=== PATIENT | female | born 1960 | race Caucasian/White ===

== ENCOUNTER → 2017-01-08 | Outpatient (CLI) | payer OTHER, BC ==
[2017-01-08 12:50] LABS: ALBUMIN 3.6 GM/DL (3.2-5.2); ALKALINE PHOSPHATASE 87 U/L (45-117); ALT/SGPT 26 U/L (12-78); ANION GAP 6 MEQ/L (8-16); AST/SGOT 13 U/L (15-37); BILIRUBIN,TOTAL 0.5 MG/DL (0.2-1.0); BLOOD UREA NITROGEN 21 MG/DL (7-18); CALCIUM LEVEL 8.9 MG/DL (8.5-10.1); CARBON DIOXIDE LEVEL 30 MEQ/L (21-32); CHLORIDE LEVEL 104 MEQ/L (98-107); CHOLESTEROL LEVEL 203 MG/DL (<200); CREATININE FOR GFR 0.79 MG/DL (0.55-1.02); GLOMERULAR FILTRATION RATE > 60.0 (>51); GLUCOSE, FASTING 94 MG/DL (70-105); POTASSIUM SERUM 4.1 MEQ/L (3.5-5.1); SODIUM LEVEL 140 MEQ/L (136-145); TOTAL PROTEIN 6.6 GM/DL (6.4-8.2); TRIGLYCERIDES LEVEL 124 MG/DL (<150)
== END ==
LOC: M ADAMS 08:35
PROVIDERS: ATTEND Nurse Practitioner Family
DX: E55.9 Vitamin D deficiency, unspecified (principal); R10.9 Unspecified abdominal pain; E78.4 Other hyperlipidemia

== ENCOUNTER → 2017-03-25 | Outpatient (REF) | payer OTHER | LOC: M SFHCWAGY 16:07 | PROVIDERS: ATTEND Nurse Practitioner Women's Health | DX: Z12.4 Encounter for screening for malignant neoplasm of cervix (principal) ==

== ENCOUNTER → 2017-03-25 | Outpatient (CLI) | payer OTHER ==
--- NOTE | 2017-03-26 08:14 | REPMRS ---
Patient History The patient states she had a clinical breast exam in 03/2017. Patient is postmenopausal. Family history of colorectal cancer in maternal grandmother at age 50 or over. Took hormonal contraceptives for 2 years. Digital Woman Screen Mammo: March 25, 2017 - Exam #: [id number] Bilateral CC and MLO view(s) were taken. Technologist: Catherine Nesbitt, Technologist Prior study comparison: February 06, 2016, digital woman screen mammo performed at [facility]. January 11, 2014, bilateral bilat screen digital mammo, performed at [facility] ([place]). FINDINGS: There are scattered fibroglandular densities. There has been no change in the appearance of the mammogram from the prior studies. There is a mild amount of residual fibroglandular tissue which is fairly symmetric. There is no interval development of dominant mass, architectural distortion, or clustered microcalcification suggestive of malignancy. ASSESSMENT: BI-RADS/ACR category 1 mammogram. Negative. Recommendation Routine screening mammogram in 1 year (for women over age 40). This mammogram was interpreted with the aid of an FDA-approved computer-aided dectection system. Electronically Signed By: Chris Mccurdy MD 03/25/17 [id number]
--- NOTE | 2017-03-27 10:26 | DEXA ---
AP SPINE L1 - L4 1.067 -1.0 0.1 LT FEMUR TOTAL 1.064 0.4 1.3 RT FEMUR TOTAL 0.998 -0.1 0.8 TOTAL BODY TOTAL OTHER DUAL FEMUR FRAX* ASSESSMENT Risk factors: Not performed. 10 year probability of fracture Major osteoporotic fracture % Hip fracture % COMMENTS: Normal bone densitometry of the left hip. There is low bone density of the spine. There is low bone density of the right hip. FOLLOW-UP: Recommendation for the next bone density exam: 2 years. NICHOLAS
== END ==
LOC: M WHC 15:25
PROVIDERS: ATTEND Nurse Practitioner Women's Health
DX: Z12.31 Encounter for screening mammogram for malignant neoplasm of breast (principal); N95.1 Menopausal and female climacteric states

== ENCOUNTER → 2017-08-12 | Outpatient (REF) | payer OTHER ==
[2017-08-12 12:54] LABS: BASO % 0.6 % (0.0-1.0); EOS % 1.2 % (0.0-3.0); HEMATOCRIT 42.6 % (36.0-47.0); HEMOGLOBIN 13.9 g/dl (12.0-16.0); IMMATURE GRANULOCYTE % 0.3 % (0-0); LYMPH # 1.2 10^3/uL (1.5-4.5); LYMPH % 33.6 % (24.0-44.0); MEAN CORPUSCULAR HEMOGLOBIN 27.5 pg (27.0-33.0); MEAN CORPUSCULAR HGB CONC 32.6 g/dl (32.0-36.5); MEAN CORPUSCULAR VOLUME 84.2 fl (80.0-96.0); MONO # 0.3 10^3/uL (0.0-0.8); MONO % 9.6 % (0.0-5.0); NEUTROPHILS # 1.9 10^3/uL (1.8-7.7); NEUTROPHILS % 54.7 % (36.0-66.0); PLATELET COUNT, AUTOMATED 233 10^3/uL (150-450); RED BLOOD COUNT 5.06 10^6/uL (4.00-5.40); RED CELL DISTRIBUTION WIDTH 13.1 % (11.5-14.5); WHITE BLOOD COUNT 3.4 10^3/uL (4.0-10.0)
[2017-08-12 13:21] LABS: ALBUMIN 3.9 GM/DL (3.2-5.2); ALBUMIN/GLOBULIN RATIO 1.18 (1.00-1.93); ALKALINE PHOSPHATASE 87 U/L (45-117); ALT/SGPT 31 U/L (12-78); ANION GAP 6 MEQ/L (8-16); AST/SGOT 20 U/L (7-37); BILIRUBIN,TOTAL 0.4 MG/DL (0.2-1.0); BLOOD UREA NITROGEN 14 MG/DL (7-18); CALCIUM LEVEL 8.8 MG/DL (8.5-10.1); CARBON DIOXIDE LEVEL 29 MEQ/L (21-32); CHLORIDE LEVEL 106 MEQ/L (98-107); CHOLESTEROL LEVEL 198 MG/DL (<200); CHOLESTEROL RISK RATIO 3.473 (<5); CREATININE FOR GFR 0.66 MG/DL (0.55-1.02); GLOMERULAR FILTRATION RATE > 60.0 (>51); GLUCOSE, FASTING 95 MG/DL (70-105); HDL CHOLESTEROL 57 MG/DL (>40); LDL CHOLESTEROL 112.8 MG/DL (<100); NON-HDL-C 141 MG/DL; POTASSIUM SERUM 3.9 MEQ/L (3.5-5.1); SODIUM LEVEL 141 MEQ/L (136-145); TOTAL PROTEIN 7.2 GM/DL (6.4-8.2); TRIGLYCERIDES LEVEL 141 MG/DL (<150)
== END ==
LOC: M LABDRWAD 12:29
DX: K21.9 Gastro-esophageal reflux disease without esophagitis (principal); E55.9 Vitamin D deficiency, unspecified; E78.4 Other hyperlipidemia

== ENCOUNTER → 2018-03-26 | Outpatient (CLI) | payer OTHER | LOC: M WHC 07:50 | DX: Z12.31 Encounter for screening mammogram for malignant neoplasm of breast (principal) | CPT/HCPCS: 77067 ==

== ENCOUNTER → 2018-12-25 | Outpatient (CLI) | payer OTHER ==
--- NOTE | 2018-12-26 06:45 | REP ---
Left axillary soft tissue ultrasound: History: Unspecified lump in the axillary tail of the left breast. Comparison is made with mammography from March 26, 2018. Findings: Scanning in the area of the palpable lump in the left axilla demonstrates a hypoechoic mass just anterior to the axillary artery. This measures 3.5 x 2.9 x 3.1 cm. It is heterogeneously solid. It is somewhat hypoechoic. Doppler demonstrates increased vascularity within the lesion. Impression: 3.5 cm solid hypoechoic mass in the axilla. This is most likely adenopathy. Breast malignancy versus lymphoma versus other cause of adenopathy are differential possibilities. Repeat left breast mammography is recommended. Consider histologic sampling. BIRADS category 4 suspicious left axillary ultrasound. Electronically Signed by Ranjit Posey MD 12/26/2018 11:47 A
== END ==
LOC: M RAD 09:47
PROVIDERS: ATTEND Physician Assistant
DX: N63.32 Unspecified lump in axillary tail of the left breast (principal)

== ENCOUNTER → 2019-01-05 | Outpatient (CLI) | payer OTHER ==
--- NOTE | 2019-01-05 15:11 | REP ---
DIAGNOSTIC MAMMOGRAM LEFT BREAST WITH 3D TOMOSYNTHESIS AND LEFT BREAST ULTRASOUND: MLO and CC views of the left breast are performed with 3D tomosynthesis. Additional spot compression views are performed in the left axillary region. Patient reports a palpable lump deep in the left axilla for the past 2 weeks. Correlation made with prior ultrasound of the left axillary region 12/25/2018. There is no family history of breast cancer. [facility] lifetime risk of breast cancer is 5.3%. MLO and CC views of the left breast are performed with 3D tomosynthesis and compared to prior exams, most recent of which is 03/26/2018. Mild scattered fibroglandular tissue in the left breast remain stable with no evidence of a mass in the left breast and no suspicious clusters of microcalcifications. Apparently, the mass deep in the left axilla could not be included on the mammographic images. Real-time sonographic evaluation of the left axillary region again demonstrates an irregular hypoechoic solid mass with internal blood flow with Doppler evaluation. It measures 4.1 x 3.8 x 2.2 cm. IMPRESSION: BIRADS 4: BI-RADS/ACR category 4 mammogram. Suspicious Abnormality - biopsy should be considered. ACR 4 suspicious. The mammographic images could not include the mass in the deep left axilla, but by ultrasound it is again seen as a suspicious-appearing solid mass probably representing left axillary adenopathy. It measures 4.1 x 3.8 x 2.2 cm and is similar to the prior study. Recommend ultrasound-guided biopsy. This mammogram was interpreted with the aid of an FDA-approved computer-aided detection system. A. Negative x-ray reports should not delay biopsy if a dominant or clinically suspicious mass is present. B. Four to eight percent of cancers are not identified by x-ray. C. Adenosis and dense breasts may obscure an underlying neoplasm. The patient states she/he had a clinical breast exam in December 2018. The patient letter being requested is M4. Electronically Signed by Chris Mccurdy MD 01/05/2019 04:20 P
== END ==
LOC: M RAD 12:19
PROVIDERS: ATTEND Nurse Practitioner Women's Health
DX: N63.32 Unspecified lump in axillary tail of the left breast (principal)

== ENCOUNTER → 2019-01-18 | Outpatient (CLI) | payer OTHER ==
[~2019-01-18] MED LIST: ISOVUE-370 76% 100ML VIAL (Q9967) As Ordered ONE
--- NOTE | 2019-01-18 09:25 | REP ---
CT CHEST WITH IV CONTRAST: TECHNIQUE: Axial contrast enhanced images from the thoracic inlet to the upper abdomen using 100 mL Isovue 370 intravenous contrast material with multiplanar reformations. COMPARISON: 11/28/2008. Large oval heterogeneously enhancing mass is seen in the left axilla measuring 5.3 x 3.1 cm. No other adenopathy is seen in the axillary regions, nor in the mediastinum or hilar regions. There is mild atherosclerotic calcification of the thoracic aorta without aneurysm. Heart is slightly enlarged. There is no pleural or pericardial effusion. Mild scattered fibrotic changes are seen throughout both lungs. There is a 5 mm nodular density in the right middle lobe which is oval in shape and slightly irregular. Followup CT should be performed in 1 year. There are degenerative changes of the spine. Visualized upper abdominal structures are unremarkable. There is a small hiatal hernia. IMPRESSION: Large heterogeneously enhancing left axillary mass 5.3 x 3.1 cm. Ill-defined low density areas internally may indicate some degree of internal necrosis. Differentiation diagnosis would include neoplastic and inflammatory etiologies. No other evidence of adenopathy in the chest. There is a 5 mm nodular density in the right middle lobe which was not seen on the prior study. Followup CT recommended in 1 year. Electronically Signed by Chris Mccurdy MD 01/19/2019 10:35 A
== END ==
LOC: M RAD 07:38
PROVIDERS: ATTEND Surgery
DX: R59.0 Localized enlarged lymph nodes (principal)
CPT/HCPCS: 71260; Q9967

== ENCOUNTER → 2019-01-25 | Outpatient (CLI) | payer OTHER ==
[~2019-01-25] MED LIST changes: +GLUCOSAMINE; +HYALUR; +HYDR-3713 PO; -ISOVUE-370 76% 100ML VIAL (Q9967) As Ordered ONE; +LIDOCAINE 1% MDV 20ML VIAL As Ordered ONE; +OMEGCAP9 PO; +OMEP40CA2 PO; +SIMV40TA2 PO; +VENTAER INH; +VITAD1000T PO; +[UNRECOGNIZED DRUG - OTHER] INH
--- NOTE | 2019-01-25 17:03 | REP ---
ULTRASOUND-GUIDED LEFT AXILLARY MASS BIOPSY The procedure was performed under the direct supervision of Dr. Mccurdy. The patient has a history of a large heterogeneously enhancing left axillary mass measuring 5.3 x 3.1 cm seen on a previous CT scan dated 01/18/2019. The risks and benefits of the procedure were explained to the patient and informed consent was obtained. The left axillary mass was localized using ultrasound guidance. The skin was prepped and draped in a sterile fashion. 1% lidocaine was used as a local anesthetic. Using ultrasound guidance a 17/18 gauge coaxial needle biopsy system was inserted and advanced into the mass. Eight core biopsy samples were obtained and sent to lab. The patient tolerated the procedure well and there were no immediate complications. After the appropriate amount of monitored convalescence the patient was discharged from the department. Reviewed by FAYE Meek 01/25/2019 04:44 P Electronically Signed by Chris Mccurdy MD 01/25/2019 04:54 P
== END ==
LOC: M RADPRO 12:22
PROVIDERS: ATTEND Surgery
DX: C77.3 Secondary and unspecified malignant neoplasm of axilla and upper limb lymph nodes (principal); Z79.899 Other long term (current) drug therapy

== ENCOUNTER → 2019-02-02 | Outpatient (CLI) | payer OTHER ==
[~2019-02-02] MED LIST changes: +AMBI5TAB PO; +GASTROGRAFIN SOLUTION 30ML (Q9963) As Ordered ONE; +ISOVUE-370 76% 100ML VIAL (Q9967) As Ordered ONE; -LIDOCAINE 1% MDV 20ML VIAL As Ordered ONE
--- NOTE | 2019-02-02 12:46 | REP ---
Clinical: Neoplasm. Technique: Axial contrast enhanced images from the lung bases to the pubic symphysis using oral (per protocol) and 100 ml Isovue 370 intravenous contrast material with precontrast and delayed images of the abdomen as well as coronal and sagittal re-formations. Comparison: None. Findings: Lung bases are clear. Visualized heart and pericardium within normal limits. The liver demonstrates mild fatty infiltration without focal hepatic lesion identified. Spleen, pancreas, gallbladder, bilateral adrenal glands and kidneys are normal. A small hiatal hernia is identified at the gastroesophageal junction. There is circumferential mural thickening involving the mid/distal sigmoid colon of approximately 5.5 cm in length. Scattered colonic and sigmoid diverticulosis noted. Normal cecum and terminal ileum identified in the right lower quadrant. Pelvis demonstrates relatively normal bladder and age-appropriate uterus/adnexa. No obvious intraperitoneal or retroperitoneal adenopathy. No free air. No ascites. Atherosclerotic changes to the aorta and vasculature noted without aneurysm or dissection. Musculoskeletal structures demonstrate age-related changes without focal osseous abnormality. Impression: 1. Circumferential mural thickening involving the mid to distal sigmoid colon of approximately 5.5 cm in length. No obvious adjacent fluid or adenopathy. 2. Small hiatal hernia at the gastroesophageal junction. 3. Colonic and sigmoid diverticulosis without acute diverticulitis. Electronically Signed by Zak Dykes MD 02/02/2019 12:38 P
== END ==
LOC: M RAD 10:03
PROVIDERS: ATTEND Surgery
DX: K44.9 Diaphragmatic hernia without obstruction or gangrene (principal); K57.32 Diverticulitis of large intestine without perforation or abscess without bleeding
CPT/HCPCS: 74178; Q9963; Q9967

== ENCOUNTER 2019-02-04 11:17 | Day surgery (SDC) | payer OTHER ==
[~2019-02-04] VITALS: Ht 152.4 cm; Wt 75.7 kg
[~2019-02-04 11:17] MED LIST changes: -AMBI5TAB PO; -GASTROGRAFIN SOLUTION 30ML (Q9963) As Ordered ONE; -HYDR-3713 PO; -ISOVUE-370 76% 100ML VIAL (Q9967) As Ordered ONE; +LIDOCAINE 2% INJ 100 MG/5 ML SDV (FOR ANES.) As Ordered ONE; +PROPOFOL 200 MG/20 ML VIAL As Ordered ONE
[2019-02-04] MEDS: NS 1,000 ML IV ONE (11:30)
--- NOTE | 2019-02-04 13:06 | ROOR ---
Patient Name: Rose Chavez Procedure Date: 02/04/2019 12:52 PM Date of : 1960 Age: 58 Room: [facility] Gender: Female Note Status: Finalized Procedure: Upper GI endoscopy Indications: Personal history of malignant neoplasm Providers: Eliseo Solorio Jr, MD Referring MD: Felipe Rosado NP Requesting Provider: Medicines: Propofol per Anesthesia Complications: No immediate complications. Procedure: Pre-Anesthesia Assessment: - Prior to the procedure, a History and Physical was performed, and patient medications and allergies were reviewed. The patient is competent. The risks and benefits of the procedure and the sedation options and risks were discussed with the patient. All questions were answered and informed consent was obtained. Patient identification and proposed procedure were verified by the physician and the nurse in the pre-procedure area and in the procedure room. Mental Status Examination: alert and oriented. Airway Examination: normal oropharyngeal airway and neck mobility. Respiratory Examination: clear to auscultation. CV Examination: normal. ASA Grade Assessment: II - A patient with mild systemic disease. After reviewing the risks and benefits, the patient was deemed in satisfactory condition to undergo the procedure. The anesthesia plan was to use moderate sedation / analgesia (conscious sedation). Immediately prior to administration of medications, the patient was re-assessed for adequacy to receive sedatives. The heart rate, respiratory rate, oxygen saturations, blood pressure, adequacy of pulmonary ventilation, and response to care were monitored throughout the procedure. The physical status of the patient was re-assessed after the procedure. The Endoscope was introduced through the mouth, and advanced to the second part of duodenum. The upper GI endoscopy was accomplished without difficulty. The patient tolerated the procedure well. Findings: The upper third of the esophagus, middle third of the esophagus and lower third of the esophagus were normal. The cardia, gastric fundus, gastric body, gastric antrum, prepyloric region of the stomach and pylorus were normal. A small hiatal hernia was present. The ampulla, duodenal bulb, first portion of the duodenum and second portion of the duodenum were normal. Impression: - Normal upper third of esophagus, middle third of esophagus and lower third of esophagus. - Normal cardia, gastric fundus, gastric body, antrum, prepyloric region of the stomach and pylorus. - Small hiatal hernia. - Normal ampulla, duodenal bulb, first portion of the duodenum and second portion of the duodenum. - No specimens collected. Recommendation: - Discharge patient to home (ambulatory). - Return to my office as previously scheduled. Eliseo Solorio MD Eliseo Solorio Jr, MD 02/04/2019 1:05:37 PM Electronically signed by Eliseo Solorio Jr, MD Number of Addenda: 0 Note Initiated On: 02/04/2019 12:52 PM Estimated Blood Loss: Estimated blood loss: none.
--- NOTE | 2019-02-04 13:26 | ROOR ---
Patient Name: Rose Chavez Procedure Date: 02/04/2019 12:53 PM Date of : 1960 Age: 58 Room: [facility] Gender: Female Note Status: Finalized Procedure: Colonoscopy Indications: Abnormal CT of the GI tract Providers: Eliseo Solorio Jr, MD Referring MD: Felipe Rosado NP Requesting Provider: Medicines: Propofol per Anesthesia Complications: No immediate complications. Procedure: Pre-Anesthesia Assessment: - Prior to the procedure, a History and Physical was performed, and patient medications and allergies were reviewed. The patient is competent. The risks and benefits of the procedure and the sedation options and risks were discussed with the patient. All questions were answered and informed consent was obtained. Patient identification and proposed procedure were verified by the physician and the nurse in the pre-procedure area and in the procedure room. Mental Status Examination: alert and oriented. Airway Examination: normal oropharyngeal airway and neck mobility. Respiratory Examination: clear to auscultation. CV Examination: normal. ASA Grade Assessment: II - A patient with mild systemic disease. After reviewing the risks and benefits, the patient was deemed in satisfactory condition to undergo the procedure. The anesthesia plan was to use moderate sedation / analgesia (conscious sedation). Immediately prior to administration of medications, the patient was re-assessed for adequacy to receive sedatives. The heart rate, respiratory rate, oxygen saturations, blood pressure, adequacy of pulmonary ventilation, and response to care were monitored throughout the procedure. The physical status of the patient was re-assessed after the procedure. The Colonoscope was introduced through the anus and advanced to the cecum, identified by appendiceal orifice and ileocecal valve. The colonoscopy was performed without difficulty. The patient tolerated the procedure well. The quality of the bowel preparation was adequate. Findings: The rectum, recto-sigmoid colon, descending colon, transverse colon, ascending colon, cecum, appendiceal orifice and ileocecal valve appeared normal. A small polyp was found in the sigmoid colon. The polyp was removed with a jumbo cold forceps. Resection and retrieval were complete. Many small and large-mouthed diverticula were found in the sigmoid colon. An area of moderately congested mucosa was found in the distal sigmoid colon. Impression: - The rectum, recto-sigmoid colon, descending colon, transverse colon, ascending colon, cecum, appendiceal orifice and ileocecal valve are normal. - One small polyp in the sigmoid colon, removed with a jumbo cold forceps. Resected and retrieved. - Diverticulosis in the sigmoid colon. - Congested mucosa in the distal sigmoid colon. Recommendation: - Discharge patient to home (ambulatory). - Repeat colonoscopy at appointment to be scheduled for surveillance based on pathology results. - Return to my office as previously scheduled. Eliseo Solorio MD Eliseo Solorio Jr, MD 02/04/2019 1:25:49 PM Electronically signed by Eliseo Solorio Jr, MD Number of Addenda: 0 Note Initiated On: 02/04/2019 12:53 PM Estimated Blood Loss: Estimated blood loss: none.
[2019-02-04 13:57] VITALS: BP 133/79
[2019-02-09] MEDS ORDERED: HYDR-3713 PO (13:59)
[2019-02-10] MEDS ORDERED: AMBI5TAB PO (13:47)
== END 2019-02-04 14:01 | disposition home or self-care (01) ==
LOC: M OPP 11:17
PROVIDERS: ATTEND Surgery
DX: K63.5 Polyp of colon (principal); K57.30 Diverticulosis of large intestine without perforation or abscess without bleeding; K63.89 Other specified diseases of intestine; K44.9 Diaphragmatic hernia without obstruction or gangrene; Z85.9 Personal history of malignant neoplasm, unspecified

== ENCOUNTER → 2019-02-09 | Outpatient (CLI) | payer OTHER ==
[~2019-02-09] MED LIST changes: +AMBI5TAB PO; +HYDR-3713 PO; +LIDO2.5C15 TOP; -LIDOCAINE 2% INJ 100 MG/5 ML SDV (FOR ANES.) As Ordered ONE; +ONDA4TAB6 PO; -PROPOFOL 200 MG/20 ML VIAL As Ordered ONE
--- NOTE | 2019-02-09 11:19 | RADONC ---
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 A definitive primary has not been located for this patient as of the date of the consultation. STAGE: Minimal stage [id number]. ICD-10 CODE: C-80.9 ECOG PERFORMANCE STATUS: 0 HISTORY OF PRESENT ILLNESS: The patient is a 58-year-old female who noted a "lump" in her left axilla associated with some "electric shock" feelings in her left arm. She also noted that this neuropathy like sensation was an intermittent sensation and it was not present at all times. She describes the sensation as a numb sensation associated with some pain which is exacerbated upon motion. The area of numbness is located in the medial aspect of her left forearm and she does have difficulty extending her arm out and laterally as well as medial extension. She has a constant aching feeling in the armpit at the present time. She has no history of breast cancer and she obtained a mammogram which was considered negative for dominant masses on 01/05/2019. Again it was repeated on 01/27/2019 and no specific masses were noted; however, an area of hypoechoic mass was demonstrated in the left axilla which measured 4.1 x 3.8 x 2.2 cm. This was classified as a BI-RADS category 4 suspicious mass. The left breast was examined with 3-D tomosynthesis and was eventually biopsied, showing metastatic mucinous adenocarcinoma. The biopsy took place I believe on 01/27/2019 and histopathologically the tumor was GATA3 negative and ER negative to try to determine the site of origin. But definitely a metastatic mucinous adenocarcinoma was seen. Because of the negative CHARU 3 status and negative ER status, it was felt that a source from another primary other than breast may indeed be a consideration. However, thus far the patient has had a colonoscopy where a polyp was removed which showed only hyperplastic changes. According to the patient Dr. Solorio did feel that there was some submucosal swelling, but the history that I have suggests that the patient has inflammatory bowel disease. Nonetheless, a CT scan of the chest, abdomen and pelvis was done and no definitive diagnoses were considered as there were no distinct abnormalities other than a 5 mm nodule in one of the lungs, which was considered most likely incidental. The patient will be scheduled for a PET scan to further help clarify the status of potential metastatic disease and perhaps even further clarify the source of the primary. She is to see Dr. Ramirez, medical oncologist, later this afternoon. She comes today to discuss her newly diagnosed mucinous adenocarcinoma involving the left axilla. PAST MEDICAL HEALTH: She has a history of hypercholesterolemia, COPD. PAST SURGICAL HEALTH: She has a history of hysterectomy, partial. section 1978 and 1981. Hernia repair. She had some anesthetic complications with nausea. FAMILY HISTORY OF CANCER: Her father had lung cancer, hypertension and heart disease. The lung cancer was surgically resected and he is ELIESER at the current time. Her mother is secondary to heart disease, had a history of hypertension and diabetes. as well as Hodgkin's lymphoma. SOCIAL HISTORY: She is a former smoker of one to two packs per day for 37 years but quit in 2009. ALCOHOL HISTORY: Rarely. She denies recreational drug use. ALLERGIES: No known drug allergies. PAIN: She rates her pain in the axilla at a level 5/10. She takes some [id number] pain medications which help to some degree. REVIEW OF SYSTEMS. RESPIRATORY: Denies coughing, dyspnea, hemoptysis, hiccups, pleuritic pain or chest pain. PSYCHIATRIC: Denies delusions, hallucination, mood changes with regards to depression or euphoria. NEUROLOGIC: Denies disorientation, dizziness, problems with gait, headache, insomnia, memory loss, neuropathy, with the exception of neuropathic pain in her left upper extremity as described in the H P. She has no paralysis and has had no seizure activity. She does have sensory issues with regards to her left upper extremity and a neuropathic like pain secondary to the mass located in the left axilla. MUSCULOSKELETAL: She has a history of arthritis and bone pain as well as joint pain, some muscle weakness and decrease in the range of motion especially with regards to the left upper extremity. INTEGUMENTARY: Denies alopecia, blisters, bruising, dry skin, facial burning, nail issues, photosensitivity, pruritus, rash or urticaria. HEMATOLOGIC: Hematopoietic. She has lymphadenopathy with regards to her left axilla with a large 4-5 cm what appears to be a fixed lymph node involving the left axilla, which is tender to the touch and associated with neuropathic like pain and numbness. GENITOURINARY: Denies dysuria, frequency genital masses, hematuria, incontinence, nocturia, renal stones, sexual dysfunction, urgency, urine color or change, vaginal discharge or bleeding, vaginal spotting. GASTROINTESTINAL: Denies changes in bowel habits, constipation, diarrhea, heartburn, dyspepsia, hematemesis, hematochezia, hemorrhoids, melena, nausea, pain, cramping, satiety, vomiting. ENDOCRINE: Denies a history of diabetes, hot flashes, menstrual irregularities or thyroid disease. CONSTITUTIONAL: Denies changes in appetite. She does note a minimal amount of fatigue. Denies fever, lethargy, malaise, night sweats, rigors or significant weight changes. CARDIOVASCULAR: Denies arrhythmias, chest pain, dyspnea, edema, orthopnea or palpitation. BREASTS: Bilaterally symmetric and she denies feeling any breast masses, although she does feel the large lymph node in the left axilla. Denies nipple discharge, nipple inversion or significant pain in the breast itself. EXAMINATION FINDINGS: VITALS: O2 saturation 96%, diastolic 83, systolic 153, respirations 20, pulse 83, temperature 98.2, weight 171.2 pounds, height 61 inches. HEENT: Normocephalic. EOMs intact. PERRLA. Fundi benign. LYMPHATICS: No palpable peripheral lymphadenopathy in the cervical or supraclavicular area. The left axilla reveals a fairly large fixed 4.5 to 5 cm lymph node which is moderately tender. The patient has some neuropathic like pain and areas of numbness involving the medial forearm. No other adenopathy is appreciated in the inguinal lymph node chains. LUNGS: Are clear to auscultation and percussion. BREASTS: Bilaterally symmetric with no dominant masses. Left-sided lymph node is palpable and somewhat tender as mentioned above. HEART: Regular without murmurs. ABDOMEN: Without evidence of hepatomegaly, masses, deep abdominal tenderness. EXTREMITIES: Without cyanosis, clubbing or edema. She does have some limitation of motion involving her left upper extremity with regards to pain and actual muscle weakness. One must assume this is secondary to the fairly large lymph node in the left axilla of which the pain may be neuropathic in origin. NEUROLOGIC EXAMINATION: Neuropathic like pain in the left axilla radiating down the left arm with some muscle weakness. Otherwise physiologic and nonfocal. PSYCHIATRIC: The patient has some depression secondary to her newly diagnosed axillary adenocarcinoma. CURRENT MEDICATIONS: - omeprazole DR one 40 mg tablet - simvastatin 40 mg daily - vitamin D3 15 mcg daily - glucosamine 150 mg daily - omega 3 acid one daily IMPRESSION: Adenocarcinoma, involving the left axilla (mucinous). PLAN OF RADIOTHERAPY: The patient's workup continues to be ongoing. We will take the liberty of ordering a PET scan to determine the patient's stage and hopefully that will also help us with determining the site of tumor primary, whether it be from a distant side versus the breast. Some of a pathologic staining would suggest that this is not of a breast primary, yet the PET scan will help determine both the stage and perhaps the site of origin. The PET scan will be ordered at this time. In addition, she has an appointment to see Dr. Ramirez of medical oncology who will be evaluating the patient and ordering any studies which she might feel would be of benefit in determining the patient's diagnosis, stage and ultimately treatment. As the patient is symptomatic, I would assume that we would consider radiating her known site of symptomatic disease which is at the current time, the axilla. If it is determined that this is of breast origin one might consider radiating empirically the breast and the axilla. Definitive recommendations will follow the evaluation of her PET scan and/or other diagnostic studies to be ordered. Thank you for referring this very aixa lady to us and allowing us the opportunity of participation in her overall management. cc: Eliseo Solorio Jr, MD Sara McGee, MD MTDD
== END ==
LOC: M ONCR 07:49
PROVIDERS: ATTEND Radiology Radiation Oncology
DX: C50.919 Malignant neoplasm of unspecified site of unspecified female breast (principal)

== ENCOUNTER 2019-02-23 12:01 | Outpatient (CLI) | payer OTHER ==
[~2019-02-23 12:01] MED LIST changes: +BUPIVACAINE HCL 0.5% 10 ML VIAL As Ordered ONE; +LIDOCAINE 2% MDV 20 ML VIAL As Ordered ONE; +ceFAZolin 1GM INJ (J0690 PER 500MG) As Ordered ONE
[2019-02-23 13:15] VITALS: BP 148/87
--- NOTE | 2019-03-23 10:22 | ROOPDOC ---
[facility] Report Of Operation Report of Operation DATE OF PROCEDURE: 02/23/2019 PREOPERATIVE DIAGNOSIS: LEFT AXILLARY MASS. POSTOPERATIVE DIAGNOSIS: LEFT AXILLARY MASS. PROCEDURE: Ultrasound guided right internal jugular vein cannulation. Fluoroscopic guided right internal jugular vein tunneled central venous catheter with subcutaneous port placement with placement of a power injectable [employer] [place] Power Port with 24 centimeter length catheter. SURGEON: Dr. Jose Allred M.D. GARMENT MENDER: DEBBIE HONEYCUTT ANESTHESIA: Local with 20 mL of 2% lidocaine mixed with 0.5% Marcaine. SEDATION TIME: None. ANTIBIOTICS: Ancef 2 g FLUOROSCOPY TIME: 0.3 minutes. CONTRAST: None. ESTIMATED BLOOD LOSS: 10 mL. IV FLUID: 100 mL. COMPLICATIONS: None. DRAINS: None. SPECIMENS: None. IMPLANTS: Right internal jugular vein tunneled central venous catheter with subcutaneous port placement using a [employer] [place] Power Port which is power injectable. INDICATION: Patient is a 58-year-old female with mass in the left axilla which is thought to be metastatic lymphadenopathy possibly from colon cancer. Patient requires access for chemotherapy and drawing of blood for evaluation. Patient will undergo a right tunneled central venous catheter placement with subcutaneous port. Procedure was described and explained to the patient in detail including drawing of pictures showing the procedure and anatomy associated with insertion of the tunneled central venous catheter was subcutaneous port. Risks, benefits, and alternative treatment options were discussed with the patient. Alternative treatment options included, but were not limited to, no intervention. Benefits included, but were not limited to, access for chemotherapy infusion centrally, avoiding recurrent venous cannulations , IV placements and sclerosis of peripheral veins. Risks included, but were not limited to, infection, bleeding, pneumothorax, hemothorax, possible need for further open surgical intervention, renal failure requiring hemodialysis, failure of the tunneled central venous catheter with subcutaneous port to function requiring evaluation, revision and/or replacement, adverse and/or allergic reaction to the sedation medications and/or local anesthetics, anesthetic and sedation complication, possible need for transfusion of blood products, allergic reaction and/or complication from the prepping and draping materials, bruising, scarring, cerebrovascular accident, myocardial infarction, pulmonary embolus, deep venous thrombosis, poor satisfaction, poor results, poor outcome, loss of limb and loss of life. Risks of not performing the port insertion included but were not limited to inability to gain access for chemotherapy, inability to gain access for blood draws and laboratory evaluation, sclerosis and thrombophlebitis of peripheral veins and pain associated with continued peripheral cannulations. Patient's questions were answered. Patient voices understanding of these risks, benefits, and alternative treatment options. Patient voices acceptance of the risks associated with placement of a central venous tunneled catheter with subcutaneous port placement and consents to proceed with tunneled central venous catheter with subcutaneous port placement. No guarantees or promises were made to the patient regarding the results or outcome of the procedure. DESCRIPTION OF PROCEDURE: Patient was taken to the angiography suite, placed supine on the angiography room table, and prepped and draped in a standard surgical fashion. A time-out was conducted by myself and the team members involved in the procedure, confirming the correct procedure, patient, and laterality. Ultrasound was then used to evaluate the right internal jugular vein, which was noted to be easily compressible, widely patent, and free of thrombus. Ultrasound was then used to guide cannulation of the right internal jugular vein with a micropuncture needle with real-time concurrent visualization of the entry of the needle into the right internal jugular vein with a hardcopy image preserved. The skin overlying the right internal jugular vein was anesthetized with 2% lidocaine mixed with 0.5% Marcaine prior to cannulation. Once the right internal jugular vein was cannulated, the micropuncture wire was advanced through the micropuncture needle, which was up-sized to a micropuncture sheath. A J wire was advanced through the micropuncture sheath. The right internal jugular vein was then dilated under fluoroscopic guidance, and a #8-Indian introducer sheath was positioned through the right internal jugular vein into the superior vena cava. The wire was removed, and the #8-Indian single lumen catheter, which had been tunneled from a puncture wound in the right chest and brought out at the puncture wound at the right internal jugular vein entry site, was advanced through the introducer sheath under fluoroscopic guidance. The introducer sheath was then removed, and the catheter was positioned with the tip in the superior vena cava/right atrial junction under fluoroscopic guidance. The catheter was cut to a length of 24 cm and attached to the port. A pocket was created in the right chest after anesthetizing the overlying tissue with 2% lidocaine mixed with 0.5% Marcaine. The port was placed in the pocket and cannulated using an access needle. The port was noted to aspirate and flush easily and then was flushed with heparinized saline. The incision in the chest was closed using # 4-0 Monocryl suture in inverted interrupted fashion. The puncture wound in the right neck was closed using a #4-0 Monocryl in inverted interrupted fashion. Steri-Strips and dressings were applied. Patient tolerated the procedure well. All instrument, sponge, and needle counts were correct at the end of the case. There were no complications. Dr. Allred was present for and directed the entire case. Patient was transferred to the recovery area and subsequently discharged in stable condition. The tunneled central venous catheter with subcutaneous port is stable for use for access. RADIOLOGIC SUPERVISION AND INTERPRETATION: The ultrasound showed the right internal jugular vein to be easily compressible, widely patent, and free of thrombus. Ultrasound was used to guide cannulation of the right internal jugular vein with real-time concurrent visualization of the entry of the needle into the right internal jugular vein. The right internal jugular vein was then dilated under fluoroscopic guidance with a #8-Indian introducer sheath placed under fluoroscopic guidance. The 8 Indian single lumen catheter was advanced through the introducer sheath positioned with the tip in the superior vena/right atrial junction using fluo roscopic guidance with final fluoroscopic image showing the catheter and port to be in good position and good alignment with the tip in the superior vena cava/right atrial junction with no pneumo- or hemothorax noted. The tunneled central venous catheter with subcutaneous port is stable for use. Omi Allred MD Mar 23, 2019 10:22
== END 2019-02-23 13:20 | disposition home or self-care (01) ==
LOC: M IRPRO 12:01
PROVIDERS: ATTEND Surgery Vascular Surgery
DX: R22.2 Localized swelling, mass and lump, trunk (principal); J44.9 Chronic obstructive pulmonary disease, unspecified; E78.5 Hyperlipidemia, unspecified; K21.9 Gastro-esophageal reflux disease without esophagitis
CPT/HCPCS: 36563; 76937; 77001; C1788; C1894; J0690

== ENCOUNTER 2019-03-25 12:16 | Emergency (ER) | payer OTHER ==
[~2019-03-25] VITALS: Ht 154.9 cm; Wt 73.6 kg
[~2019-03-25 12:16] MED LIST changes: -BUPIVACAINE HCL 0.5% 10 ML VIAL As Ordered ONE; +CHOL100029 PO; -LIDOCAINE 2% MDV 20 ML VIAL As Ordered ONE; -OMEP40CA2 PO; +OMEP40CA97 PO; -SIMV40TA2 PO; +SIMV40TA20 PO; -VITAD1000T PO; -ceFAZolin 1GM INJ (J0690 PER 500MG) As Ordered ONE
[2019-03-25] MEDS ORDERED: diphenhydrAMINE INJ 50MG/ML VIAL (J1200) IV ONE (13:45)
[2019-03-25] MEDS ORDERED: FAMOTIDINE INJ 20MG/2ML VIAL (S0028) IVP ONE (13:45)
[2019-03-25] MEDS ORDERED: dexameTHASONE 20 MG/5 ML VIAL (J1100) IV ONE (13:45)
[2019-03-25] MEDS ORDERED: EPIP0.3I2 IM (15:56)
[2019-03-25] MEDS ORDERED: PRED20TA PO (15:56)
[2019-03-25 16:00] VITALS: BP 132/64
[2019-04-07] MEDS ORDERED: POTA20TA6 PO (10:46)
[2019-04-07] MEDS ORDERED: FILG48VL SC (16:42)
[2019-04-29] MEDS ORDERED: ZARX0.05 SQ (09:46)
[2019-04-30] MEDS ORDERED: ZARX0.05 SQ (09:22)
[2019-07-12] MEDS ORDERED: ZARX0.05 SQ (08:56)
[2019-08-24] MEDS ORDERED: D32000CA PO (08:31)
[2019-08-24] MEDS ORDERED: DULO1CAP4 PO (09:29)
== END 2019-03-25 16:43 | disposition home or self-care (01) ==
LOC: M ED 12:16
DX: T63.461A Toxic effect of venom of wasps, accidental (unintentional), initial encounter (principal); Y92.9 Unspecified place or not applicable; Y93.9 Activity, unspecified; E78.5 Hyperlipidemia, unspecified; K21.9 Gastro-esophageal reflux disease without esophagitis; L40.9 Psoriasis, unspecified; J45.909 Unspecified asthma, uncomplicated; J44.9 Chronic obstructive pulmonary disease, unspecified; C18.9 Malignant neoplasm of colon, unspecified; Z92.21 Personal history of antineoplastic chemotherapy; Z87.891 Personal history of nicotine dependence; Z79.899 Other long term (current) drug therapy
CPT/HCPCS: 94760; 96374; 96375; 99284; J1100; J1200

== ENCOUNTER → 2019-05-25 | Outpatient (CLI) | payer OTHER ==
[~2019-05-25] MED LIST changes: +EPIP0.3I2 IM; +FILG48VL SC; +POTA20TA6 PO; +PRED20TA PO; +SIMV40TA2 PO; -SIMV40TA20 PO; +ZARX0.05 SQ
--- NOTE | 2019-05-26 09:38 | REP ---
PET/CT: History: Restaging colon cancer. Initial diagnosis February 27, 2019. 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 5 mm right middle lobe lung nodule. The patient on chemotherapy. Comparison PET/CT study January 11, 2019. Comparison CT study abdomen and pelvis February 02, 2019. Comparison CT chest January 18, 2019. TECHNIQUE: 47 minutes following the intravenous injection of a 8.47 mCi dose of F-18 FDG, three-dimensional PET scintigraphy is acquired from the skull base to the proximal thighs. Triplanar noncontrast CT scanning is acquired through the same anatomic range for attenuation correction, and image registration with scan parameters optimized to minimize radiation exposure to the patient. PET scintigraphy and CT datasets were fused and displayed on a workstation with multiplanar and projection display capability. PET/CT Findings: The tiny sub-centimeter right middle lobe pulmonary nodule remains non-hypermetabolic and unchanged in size. No abnormal intrathoracic hypermetabolic uptake is seen. The left axillary adenopathy appears larger today, 6.8 x 4.7 cm in greatest transverse dimension, previously 5.3 x 3.1 cm on January 18, 2019. It remains quite hypermetabolic. Maximum standard uptake value within the left axillary adenopathy is 18.21 today. Previously 22.75. The skeletal muscle metastasis in the left trapezius muscle is again seen essentially unchanged with maximum standard uptake value 16.29 today, previously 20.81. The skeletal metastatic focus in the abductor musculature of the left proximal thigh at the level of the ischium on the left is again seen. Maximum standard uptake value in this is 20.08 today, previously 19.75. There is a focus of increased uptake in the sigmoid colon with maximum standard uptake value 10.46. This is increased compared to the prior study when maximum standard uptake value in this region was 6.42. Impression: Persistent hypermetabolic uptake is noted in previously identified left axillary and skeletal muscle metastatic sites. The left axillary mass appears larger. There is increased hypermetabolic activity in the sigmoid colon compared to the prior PET/CT study. No new site is appreciated. Stable non-hypermetabolic right middle lobe nodule. Electronically Signed by Ranjit Posey MD 05/26/2019 01:43 P
== END ==
LOC: M PLARAD 11:20
PROVIDERS: ATTEND Internal Medicine Hematology & Oncology
DX: C18.9 Malignant neoplasm of colon, unspecified (principal)

== ENCOUNTER → 2019-07-30 | Outpatient (CLI) | payer OTHER ==
[~2019-07-30] MED LIST changes: +GASTROGRAFIN SOLUTION 30ML (Q9963) As Ordered ONE; +ISOVUE-370 76% 100ML VIAL (Q9967) As Ordered ONE; -SIMV40TA2 PO; +SIMV40TA20 PO
--- NOTE | 2019-07-30 14:30 | REP ---
CT CHEST WITH IV CONTRAST: TECHNIQUE: Axial contrast enhanced images from the thoracic inlet to the upper abdomen using 100 mL Isovue 370 intravenous contrast material with multiplanar reformations. COMPARISON: 01/18/2019. The previously noted soft tissue mass in the left axilla has increased in size. It measures approximately 5.5 x 7.0 cm. There is mild induration of surrounding fat. There is a soft tissue mass in the posterior chest wall on the left at the level of the clavicle measuring 3.0 x 2.2 cm. There is no evidence of mediastinal, or hilar adenopathy. The heart is normal in size. There is no pleural or pericardial effusion. There is a Mediport catheter seen. Tip is in the superior vena cava. There are mild scattered fibrotic changes in the lungs without pulmonary nodule. There are mild degenerative changes of the spine. IMPRESSION: Increased size of left axillary soft tissue mass. There is a posterior left chest wall soft tissue mass at the level of the left clavicle measuring 3.0 x 2.2 cm. No mediastinal adenopathy. No pulmonary nodule identified. Electronically Signed by Chris Mccurdy MD 07/30/2019 04:55 P
--- NOTE | 2019-07-30 14:37 | REP ---
CT ABDOMEN AND PELVIS WITH IV AND ORAL CONTRAST: TECHNIQUE: Axial contrast enhanced images from the lung bases to the pubic symphysis using 100 mL Isovue 370 intravenous contrast material with multiplanar reformations. There is again a small hiatal hernia noted. Liver, spleen, adrenals, pancreas, and kidneys are again unremarkable and unchanged compared to the prior CT of 02/02/2019. There is atherosclerotic calcification of the abdominal aorta without aneurysm. No adenopathy is seen in the abdomen or pelvis. There is no free air or free fluid. Multiple diverticula are seen of the left colon and sigmoid colon. There is again diffuse segmental thickening of the sigmoid colon similar to the prior study. Urinary bladder is mildly distended and grossly unremarkable. Uterus is grossly unremarkable. In the very proximal aspect of the left thigh soft tissues medially there is a heterogeneously enhancing mass measuring 4.5 cm in diameter. This has increased since prior study. IMPRESSION: Segmental thickening of the sigmoid colon appears similar to the prior study. Multiple diverticula are seen in this region. No new adenopathy in the abdomen or pelvis. Soft tissue mass left thigh, medially, has increased since prior study 4.5 cm in maximum diameter. Electronically Signed by Chris Mccurdy MD 07/30/2019 04:55 P
== END ==
LOC: M RAD 11:23
PROVIDERS: ATTEND Internal Medicine Hematology
DX: M79.89 Other specified soft tissue disorders (principal); I70.0 Atherosclerosis of aorta; C18.9 Malignant neoplasm of colon, unspecified
CPT/HCPCS: 71260; 74177; Q9963; Q9967

== ENCOUNTER → 2019-09-03 | Outpatient (CLI) | payer OTHER ==
[~2019-09-03] MED LIST changes: +CLAR10CA3 PO; +CLAR10TA7 PO; +D32000CA PO; +DULO1CAP4 PO; -GASTROGRAFIN SOLUTION 30ML (Q9963) As Ordered ONE; -ISOVUE-370 76% 100ML VIAL (Q9967) As Ordered ONE
--- NOTE | 2019-09-04 13:12 | RADONC ---
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 ECOG PERFORMANCE STATUS: 0 CONSULTATION NOTE: Ms. Chavez is a very pleasant 59-year-old white female who was originally seen in our department on 02/09/2019 for consideration of palliative radiation therapy to a left axillary mass. Since her visit, however, she has been under the care of medical oncology and has been receiving systemic therapy consisting of FOLFIRI, plus Avastin. Apparently, her axillary mass initially shrank but has been growing again and causing her numbness in her left arm and pain. She, therefore, is now presenting to us for consideration of palliative radiation therapy once again. REVIEW OF SYSTEMS: The patient's review of systems is positive for some left arm numbness and axillary discomfort, but is otherwise noncontributory. Denies nausea, vomiting, fevers, chills, night sweats, diplopia, headaches, anxiety or depression, anorexia, weight loss, visual disturbances, chest pain, urinary or bowel difficulties, bone pain, or neurological problems. PHYSICAL EXAMINATION: The patient is a well-developed, well-nourished white female in no acute distress. HEENT exam is normocephalic, atraumatic. Extraocular movements are intact. There is no palpable cervical, supraclavicular, infraclavicular lymphadenopathy present. In the patient's left axillary region there is a large fixed mass. The right axillary area is free of nodularity. Her lungs are clear to auscultation and percussion. Heart has regular rate and rhythm. ASSESSMENT: Clearly the patient is a candidate for palliative radiation therapy and I have so informed her. I have discussed with the patient in detail the potential benefits as well as possible acute and chronic sequelae of external beam radiation therapy. Specifically we spoke about neurological damage from radiation to the brachial plexus as well as exacerbation of lymphedema. The patient reports that she is already having pain and some lymphedema, and therefore, wishes to undergo treatment fully aware of the risks. I have scheduled the patient for the next available simulation slot and radiation treatments will begin subsequently.
== END ==
LOC: M ONCR 09:54
PROVIDERS: ATTEND Radiology Radiation Oncology
DX: C18.9 Malignant neoplasm of colon, unspecified (principal); I89.0 Lymphedema, not elsewhere classified; Z92.3 Personal history of irradiation

== ENCOUNTER 2019-09-09 10:10 | Outpatient (RCR) | payer OTHER ==
--- NOTE | 2019-09-10 07:14 | RADONC ---
RADIATION ONCOLOGY SIMULATION NOTE: DATE: 09/09/2019 CHART NUMBER: [id number] Ms. Chavez was taken to the CT scan for CT simulation of her left axillary field. CT was accomplished without difficulty or discomfort. Radiation treatment planning is underway and radiation treatments will begin subsequently. An immobilization device was created and be used throughout the course of treatment. It was created without difficulty or discomfort. I was physically present throughout the course of CT simulation.
== END 2019-09-10 ==
LOC: M ONCR 10:10
PROVIDERS: ATTEND Radiology Radiation Oncology
DX: C77.3 Secondary and unspecified malignant neoplasm of axilla and upper limb lymph nodes (principal)

== ENCOUNTER 2019-10-06 11:33 | Outpatient (RCR) | payer OTHER ==
--- NOTE | 2019-09-20 14:40 | RADONC ---
RADIATION ONCOLOGY DATE: 09/20/2019 CHART NUMBER: [id number] Ms Chavez presented with left axillary mass causing severe pain and numbness and swelling of the left arm. Biopsy of the mass in the left axilla was positive for metastatic CA primary from the colon. She started chemo last February and changed to a different regimen because of the progression of the disease. She is radiation therapy. So far she has received 800 cGy. She said she is still having pain but seems to be slightly eased. SYSTEMIC REVIEW: She has complaints of pain. Pain scale of 8 to 9 on the left axilla. Some weakness of the left arm. She denies nausea, vomiting, headache, bowel problems. PHYSICAL EXAMINATION: There is slight swelling of the left arm. There is a hard mass in the left axilla about 5 cm. No other abnormal examination. So far she is tolerating treatments very well with some relief of pain and treatment will continue as planned. MTDD
--- NOTE | 2019-09-28 11:46 | RADONC ---
RADIATION ONCOLOGY DATE OF SERVICE: 09/27/2019 CHART NUMBER: [id number]. Ms. Chavez is carrying diagnosis of metastatic left axillary mass from the primary colon. She has been on chemotherapy since last February and changed to different regimen because of the progression of the disease. So far, she has received dose of 1600 cGy to the left axilla. The pain in the left axilla is significantly improved. SYSTEMIC REVIEW: She said the pain in the left axilla is now 2-3 from the 8-9 last week. She denies nausea, vomiting, headache, or weight changes. On physical examination, she weighs 162 pounds. Blood pressure is 146/82. Temperature 98.3. Pulse 85. Respiration 16. O2 saturation is 98% in room air. There is the mass in the left axilla about 5-6 cm in size and moderate in consistency. There are no significant skin changes noted. ASSESSMENT AND PLAN: The patient with metastatic left axillary mass from the colon primary is getting chemotherapy and the radiation therapy. So far, she has received dose of 1600 cGy. The pain is significantly improved. Radiation therapy will continue as planned. MTDD
--- NOTE | 2019-10-05 08:58 | RADONC ---
RADIATION ONCOLOGY PROGRESS NOTE: DATE: 10/04/2019 CHART NUMBER: [id number] Ms. Chavez is presently at a dose of 2600 cGy to her left axilla and is tolerating treatments quite well at this point with no complaints related to her radiation therapy. The patient had a marked improvement in her discomfort and feels like the mass is shrinking. REVIEW OF SYSTEMS: The patient's review of systems is basically noncontributory. She denies nausea, vomiting, fevers, chills, night sweats, diplopia, headaches, anxiety or depression, anorexia, weight loss, visual disturbances, chest pain, urinary or bowel difficulties, bone pain, or neurological problems. PHYSICAL EXAMINATION: The patient's skin is in good condition with no evidence of moist or dry desquamation. I do believe the axillary mass has decreased in size. The remainder of her physical exam remains unchanged. Ms. Chavez is tolerating treatments quite well and radiation will continue as scheduled.
[2019-10-11] MEDS ORDERED: SILV40CR EXT (13:40)
== END 2019-10-09 ==
LOC: M ONCR 11:33
PROVIDERS: ATTEND Radiology Radiation Oncology
DX: C18.9 Malignant neoplasm of colon, unspecified (principal)

== ENCOUNTER → 2019-11-09 | Outpatient (RCR) | payer OTHER ==
--- NOTE | 2019-10-12 14:16 | RADONC ---
RADIATION ONCOLOGY PROGRESS NOTE DATE: 10/11/2019 CHART NUMBER: [id number] PROGRESS NOTE: Ms. Chavez is presently at a dose of 3200 cGy to her left axilla and is tolerating treatments quite well at this point with no significant difficulties related to her radiation therapy other than some skin discomfort. REVIEW OF SYSTEMS: The patient's review of systems is positive for skin discomfort, but is otherwise noncontributory. Denies nausea, vomiting, fevers, chills, night sweats, diplopia, headaches, anxiety or depression, anorexia, weight loss, visual disturbances, chest pain, urinary or bowel difficulties, bone pain, or neurological problems. PHYSICAL EXAMINATION: The patient's skin is in good condition with some tanning and erythema present. There is no significant moist desquamation at this point. The remainder of her physical exam remains unchanged. Ms. Chavez is tolerating treatments quite well and radiation will continue as scheduled. I have sent in a prescription for Silvadene cream to be applied topically b.i.d.
--- NOTE | 2019-10-19 14:11 | RADONC ---
RADIATION ONCOLOGY PROGRESS NOTE DATE: 10/18/2019 CHART NUMBER: [id number] PROGRESS NOTE: Ms. Chavez is thus far at a dose of 4000 cGy to her left axilla and was last treated on 10/15/2019. The patient came in today for reevaluation of her skin. I had placed her on rest after last week and gave her Silvadene. REVIEW OF SYSTEMS: The patient is having some tenderness and pain of the skin and reports some yellowish material on her bandage. Her review of systems is otherwise noncontributory. Denies nausea, vomiting, fevers, chills, night sweats, diplopia, headaches, anxiety or depression, anorexia, weight loss, visual disturbances, chest pain, urinary or bowel difficulties, bone pain, or neurological problems. PHYSICAL EXAMINATION: On physical exam, the patient's skin shows dry desquamation and two small areas of moist desquamation. I do not appreciate anything that looks infected. Indeed the skin actually looks like it is improving somewhat with the use of Silvadene. The remainder of physical exam remains unchanged. I have recommended that the patient stay on rest this week and continue using Silvadene as well as triple antibiotic ointment to the area. We will see her on Friday for reinitiation of treatment and reevaluation. In the meantime, the patient has been instructed to contact us if we could be of any assistance.
--- NOTE | 2019-10-26 11:11 | RADONC ---
RADIATION ONCOLOGY PROGRESS NOTE DATE: 10/25/2019 CHART NUMBER: [id number] Mrs. Chavez is presently being treated with radiotherapy for her metastatic mucinous adenocarcinoma, likely of colorectal primary. She has a mass in the left axilla and has been placed on rest from her radiotherapy for approximately 1 week. She returns to our clinic today for reevaluation. She denies any nausea, vomiting, coughing, sputum production or hemoptysis but she does have focal patchy moist desquamation in the axilla which appears to be healing but not quite yet healed. There are focal islands of re-epithelialization and she no longer has a significant amount of discomfort but has difficulty with washing the area. EXAMINATION FINDINGS: The area still his weeping and with focal areas of desquamation and re-epithelialization. She is not yet ready to restart her radiotherapy because she is not healed sufficiently at the present time. She has tingling involving her left arm and we are treating her with palliative intent. She had been receiving FOLFIRI with Avastin chemotherapy. IMPRESSION: The patient will be off of her radiotherapy for approximately one additional week while she is allowed for her skin to heal. PLAN: We will see her again in one week's time to evaluate her to restart her radiotherapy.
--- NOTE | 2019-11-01 14:43 | RADONC ---
RADIATION ONCOLOGY PROGRESS NOTE DATE: 11/01/2019 CHART NUMBER: [id number] Ms. Chavez is thus far at a dose of 4000 cGy to her left axilla and was last treated on 10/15/2019. She had been on rest for a brisk skin reaction with moist desquamation. The patient came in today reporting that she is feeling less pain and discomfort. REVIEW OF SYSTEMS: Is positive for some continued discomfort but is otherwise noncontributory. She denies nausea, vomiting, fevers, chills, night sweats, diplopia, headaches, anxiety or depression, anorexia, weight loss, visual disturbances, chest pain, urinary or bowel difficulties, bone pain, or neurological problems. PHYSICAL EXAMINATION: The patient's skin shows that is healing but there still are large areas of moist desquamation throughout the axillary region. The remainder of physical exam remains unchanged. Ms. Chavez will remain on rest until Friday this week. We will then deliver three additional treatments after which she will have the 2 days off for the weekend and then two more next week. This should complete her course of treatment. On carpenter supervisor a note the patient's tumor has decreased in size significantly.
--- NOTE | 2019-11-08 13:28 | RADONC ---
RADIATION ONCOLOGY PROGRESS NOTE DATE: 11/08/2019 CHART #: [id number] Ms. Chavez is presently at a dose of 4800 cGy to her left axilla and is tolerating her treatments with some difficulty. She had a brisk skin reaction secondary to radiation with moist desquamation. The patient came in today reporting continued discomfort. PHYSICAL EXAMINATION: There continues to be moist desquamation in the treated area. It appears not any worse than last week. ASSESSMENT: Since the patient only has one more fraction of radiation left, we will complete treatment tomorrow. She will continue with her Silvadene treatments.
[~2019-11-09] MED LIST changes: +PROC5TA PO; +SILV40CR EXT; +ZOFR4TAB16 PO
--- NOTE | 2019-11-10 13:09 | RADONC ---
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 ECOG PERFORMANCE STATUS: 0 TREATMENT SUMMARY: Ms. Chavez is a very pleasant 59-year-old white female with the diagnosis of metastatic adenocarcinoma to her left axilla, who presented to us for consideration of palliative radiation therapy to a large mass causing her pain and difficulties with range of motion of her arm. We treated the patient to her left axilla for a total dose of 5000 cGy delivered in 25 fractions of 200 cGy each over 55 elapsed days from 09/15/2019 through 11/09/2019. The patient's left axilla was treated on a linear accelerator utilizing a 10 MV photon beam via 3-D conformal technique. Ms. Chavez tolerated her treatments with some skin reaction, but overall had an excellent response with a marked decrease in the size of her mass and improvement in her arm pain and range of motion. She is now able to have her arm straight down by her side and she reports that it appears to be improving on a daily basis. I have scheduled the patient to see me again in 1 month for further followup. She will also continue to be followed by her other physicians as well. cc: CHRISTI Prabhakar Jr, MD Jonathan Harrison, MD
== END ==
LOC: M ONCR 10-11 12:50
PROVIDERS: ATTEND Radiology Radiation Oncology
DX: C77.3 Secondary and unspecified malignant neoplasm of axilla and upper limb lymph nodes (principal)

== ENCOUNTER → 2019-11-29 | Outpatient (REF) | payer OTHER ==
[2019-11-29 10:06] LABS: HEMOGLOBIN A1c 5.4 %
== END ==
LOC: M LAB REF 09:04
PROVIDERS: ATTEND Physician Assistant Medical
DX: R73.01 Impaired fasting glucose (principal)

== ENCOUNTER → 2020-01-04 | Outpatient (CLI) | payer OTHER ==
--- NOTE | 2020-01-05 01:03 | REP ---
PET/CT: HISTORY: Restaging colon carcinoma. Metastatic. Maintenance chemotherapy. Recent external beam radiation therapy for metastatic lesion to the left axilla. COMPARISONS: Comparison PET/CT study 05/25/2019 and 02/10/2019. TECHNIQUE: 45 minutes following the intravenous injection of a 8.05 mCi dose of F-18 FDG, three-dimensional PET scintigraphy is acquired from the skull base to the proximal thighs. Triplanar noncontrast CT scanning is acquired through the same anatomic range for attenuation correction, and image registration with scan parameters optimized to minimize radiation exposure to the patient. PET scintigraphy and CT datasets were fused and displayed on a workstation with multiplanar and projection display capability. PET/CT FINDINGS: The left axillary racquel metastasis is decreased in size and demonstrates a peripheral pattern of hypermetabolic uptake, suggesting some central necrosis. Maximum SUV value remains somewhat high at 10.22. This focus measures 4.3 cm in greatest diameter. The soft tissue mass in the periarticular soft tissues of the left shoulder in the region of the supraspinatus muscle appears increased in size, 5.8 cm. It is quite hypermetabolic, maximum standard uptake value 25.37. There is a new focus of hypermetabolic uptake along the superior margin of the left glenoid. No obvious bony destruction. This may be arthritis related or a metastatic bony focus. Maximum standard uptake value is 5.51. The soft tissue metastasis in the adductor musculature of the proximal thigh on the left shows persistent hypermetabolic uptake, maximum standard uptake value 22.60. This measures 5.3 cm in greatest diameter. This appears to have enlarged. No other abnormal hypermetabolic uptake is seen. IMPRESSION: There is some improvement noted in the left axillary focus. A new area of increased uptake is seen in the left glenoid, which may be arthritis associated. No other evidence of hematogenous skeletal lesions. The intramuscular metastases in the region of the left supraspinatus muscle and the metastasis in the adductor musculature of the proximal thigh on the left have increased in size and are quite hypermetabolic. Electronically Signed by Ranjit Posey MD 01/05/2020 08:21 A
== END ==
LOC: M PLARAD 13:15
PROVIDERS: ATTEND Internal Medicine Medical Oncology
DX: C18.7 Malignant neoplasm of sigmoid colon (principal); C77.3 Secondary and unspecified malignant neoplasm of axilla and upper limb lymph nodes; C79.89 Secondary malignant neoplasm of other specified sites
CPT/HCPCS: 78815; A9552

== ENCOUNTER → 2020-01-18 | Outpatient (CLI) | payer OTHER ==
[~2020-01-18] MED LIST changes: +BACT800T5 PO; +CEPH500C PO; +D31000TA2 PO; +ELIQ5TAB PO; +FISH1000 PO; +GABA-282 PO; +K-TA10TA2 PO; +KEFL500C17 PO; +LONS1TAB2 PO; +LOVE0.4I2 SC; +METH5TA PO; +METH5TAB3 PO; +MORP10SO PO; +OXYC-517 PO; +PERC5TAB12 PO; -PROC5TA PO; +PROC5TAB57 PO; +STIV40TA PO; +VITA-157 PO; +[UNRECOGNIZED DRUG - OTHER]; +wheel chair
--- NOTE | 2020-01-21 17:28 | RADONC ---
RADIATION ONCOLOGY CONSULTATION NOTE DATE: 01/18/2020 This is a telemedicine visit. The patient was informed of the risks including security breech, technological failure, inability to perform a comprehensive physical exam which could delay or prevent an accurate diagnosis, and potential complications from treatment decisions rendered over a telemedicine platform. The patient understands and consented to the use of telehealth services phone only. 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 ECOG PERFORMANCE STATUS: 1 CONSULTATION NOTE: Ms. Chavez is a very pleasant 59-year-old white female with the diagnosis of metastatic mucinous adenocarcinoma who was originally seen in our department on 02/09/2019 for consideration of palliative radiation therapy to a left axillary mass. We treated the patient to her left axilla for a dose of 5000 cGy delivered in 25 fractions of 200 cGy each over 55 elapsed days from 09/15/2019 through 11/09/2019. The patient's left axilla was treated on the linear accelerator utilizing a 10 MV photon beam. The patient reports that her axillary mass decreased in size and responded nicely. Unfortunately, she continues to still have healing problems with the skin in her axillary area. She reports that some days are very good but other days have some oozing. This was a telephone consultation and I have not seen her. Since completion of treatment, the patient has been followed by medical oncology and a PET/CT scan was done on 01/04/2020. This revealed that the left axillary racquel metastasis had decreased in size and demonstrated peripheral pattern of hypermetabolic uptake suggesting central necrosis. The SUV value was 10.22. The focus measured 4.3 cm. Clearly this seemed to be a good response to radiation. In addition, there was a soft tissue mass in the left shoulder in the region of the supraspinous muscle which measured 5.8 cm. It had an SUV value of 25.37. Another mass was noted in the abductor musculature of the proximal thigh on the left consistent with hypermetabolic uptake with an SUV value of 22.6. This mass measured 5.3 cm. The patient reports that her left shoulder mass as well as her groin mass is causing her pain and discomfort and is she is being seen by me today for consideration of palliative radiation therapy to these areas as well. PAST MEDICAL HISTORY: The patient's past medical history is positive for COPD and hypercholesterolemia. PAST SURGICAL HISTORY: The patient had a in 1978 and 1981. She has had a partial hysterectomy. ALLERGIES: The patient has NO KNOWN DRUG ALLERGIES. FAMILY HISTORY: The patient's family history is positive for a father with lung cancer and a maternal aunt with Hodgkin's disease. She had a grandmother with some type of cancer as well. SOCIAL HISTORY: The patient had smoked two packs of cigarettes per day for 37 years. She quit 10 years ago. She drinks alcohol socially. REVIEW OF SYSTEMS: The patient's review of systems is positive for skin discomfort in the treated axillary region with some discharge. It is also positive for pain over her left shoulder and left groin region. PHYSICAL EXAMINATION: Physical exam was deferred at this time since this was a telephone consultation for COVID-19 precautions. We will examine her when she comes in for simulation. ASSESSMENT: I had a very lengthy discussion with Ms. Chavez, and we discussed the potential benefits as well as possible acute and chronic sequelae of external beam radiation therapy. We discussed the logistics of treatment planning, simulation and subsequent fractionated daily radiation treatments. I specifically discussed the issues which complicate this treatment. She has had difficulty with her axillary skin following radiation. I explained to her that the region of the groin we will be treating is actually more sensitive to radiation and may be painful and have some desquamation and oozing as well. In addition, she may have significant burning urine or bowel issues during the course of treatment to that area. We are planning a dose of approximately 3000 cGy in 10 fractions of 300 cGy each and will focus narrowly on that mass hoping to avoid too many difficulties. The patient reported that following the initial radiation to the axilla she did not wish to have her undergo radiation again secondary to the skin discomfort, but she now reports that in light of the increasing discomfort in the two untreated areas she is willing to use radiation, which appears to be the only modality that is effective. In addition, I spoke at great length with her about her shoulder treatment. We will be scheduling her for CT simulation and we will attempt to see whether or not we could treat this safely without any overlap of the previous field. The two areas are quite close and until we attempt to various planning techniques I am not sure yet whether or not we could safely treat this area. In light of this, I am scheduling the patient for the next available simulation slot for both treatment areas. Further recommendations will be made once treatment planning is completed. cc: CHRISTI Schneider Jr, MD MTDD
--- NOTE | 2020-02-02 14:30 | RADONC ---
RADIATION ONCOLOGY DATE OF SERVICE: 01/31/2020 Ms. Chavez is a 59-year-old woman who carries a diagnosis of metastatic colon CA. She had multiple course of chemo and radiation therapy. Currently she is receiving palliative radiation therapy to the left groin and also left shoulder. She said the pain in the left shoulder is somewhat improved with pain scale of 5. However, it can go up to 6-7. REVIEW OF SYSTEMS: She has no other complaints. She denies nausea, vomiting, fever, chills, night sweats, headache. PHYSICAL EXAMINATION: She is alert and oriented, No in apparent disttress There are no significant skin changes noted in the left shoulder and groin area. Overall she is tolerating treatment fairly well and the treatment will continue as planned. MTDD
== END ==
LOC: M ONCR 10:02
PROVIDERS: ATTEND Radiology Radiation Oncology
DX: C18.9 Malignant neoplasm of colon, unspecified (principal)

== ENCOUNTER → 2020-02-08 | Outpatient (RCR) | payer OTHER ==
--- NOTE | 2020-01-25 13:25 | RADONC ---
RADIATION ONCOLOGY SIMULATION NOTE DATE OF SERVICE: 01/20/2020 CHART NUMBER: [id number]. SIMULATION NOTE: Ms. Chavez was taken to the CT scan for CT simulation of her right upper back, as well as right groin field. CT was accomplished without difficulty or discomfort. Radiation treatment planning is underway, and radiation treatments will begin subsequently. An immobilization device was created, which reproduced the previously-treated axillary field. It was created without difficulty or discomfort. I was physically present throughout the course of CT simulation. Of note, there is an area measuring several centimeters of her axillary skin which is not yet healed. She is now 2 months post completion of external beam radiation therapy to that area. It is causing her some discomfort. She has been using Silvadene on this. For this wound, I am setting her up with a consultation at our wound care center to see if they could be of some assistance in accelerating healing this very pleasant woman for that site. I am concerned, and we will be quite diligent in planning the right shoulder mass field. Great care will be taken not overlap with the previous field. I made clear to the patient, however, that this may not be possible, and we may not be able to treat the left shoulder region safely. The groin region can be treated, but I made clear to her, as well, that that skin is quite sensitive, and she might have a significant amount of discomfort following radiation. We will, however, continue with treatment planning and see what we can come up with for that treatment. Once again, in summary, we are undertaking treatment planning for the groin area and the right shoulder. Great care will be needed to avoid any overlap with the previously-treated axillary field. In addition, the groin area may be quite sensitive following radiation, and I am sending her to the wound care clinic for an evaluation to see if they could be of any assistance in expediting healing in the previously-radiated field.
[~2020-02-08] MED LIST changes: -BACT800T5 PO; -CEPH500C PO; -D31000TA2 PO; -ELIQ5TAB PO; -GABA-282 PO; -K-TA10TA2 PO; -KEFL500C17 PO; -LONS1TAB2 PO; -LOVE0.4I2 SC; -METH5TA PO; -METH5TAB3 PO; -MORP10SO PO; -OXYC-517 PO; -PERC5TAB12 PO; +PROC5TA PO; -PROC5TAB57 PO; -wheel chair
--- NOTE | 2020-02-08 15:13 | RADONC ---
RADIATION ONCOLOGY DATE OF SERVICE: 02/08/2020 Ms. Chavez is receiving palliative radiation therapy to the right scapular area and left inguinal area. She has received a dose of 3000 cGy in 10 fractions to the left inguinal area using 6 MeV photon beams from January 26, 2020 to February 08, 2020 in 13 elapsed days. She also received radiation therapy left scapular area with dose of 3000 cGy in 10 fractions from January to February 08, 2020 in 13 elapsed days using 6 MeV photon beams. She tolerated treatment very well. Her pain in the left shoulder and the left inguinal area is much improved. However, she complains pain in the right shoulder pain score of 8-9 and has limitation of movement. She is currently taking Tylenol for pain. She was advised continuous followup care with the physicians involved, and she was also asked to return here in 1 month for checkup. NICHOLAS
--- NOTE | 2020-02-10 08:47 | RADONC ---
RADIATION ONCOLOGY DATE OF SERVICE: 02/07/2020 CHART #: [id number] Ms. Chavez carries the diagnosis of metastatic CA. She is receiving palliative radiation therapy to the right scapula and left inguinal area. So far, she has received a dose of 2700 cGy in 9 fractions. She said the pain in both areas improved. However, she complains of significant pain in the left shoulder, pain score of 8-9. She was advised to take extra strength Tylenol by her medical oncologist. SYSTEMIC REVIEW: Other than the pain in the left shoulder, she has no other complaints. She denies any nausea, vomiting, headache. She has no bowel problems. PHYSICAL EXAMINATION: She is alert, oriented. She has limitation of movement of the left shoulder. There are no noticeable skin changes in the treatment area. She was advised continuous treatment in both areas which will be completed tomorrow. I advised that she will be evaluated for the pain in the left shoulder. [facility]
== END ==
LOC: M ONCR 01-20 10:33
PROVIDERS: ATTEND Radiology Radiation Oncology
DX: C77.4 Secondary and unspecified malignant neoplasm of inguinal and lower limb lymph nodes (principal)

== ENCOUNTER 2020-03-07 11:51 | Emergency (ER) | payer OTHER ==
[~2020-03-07 11:51] MED LIST changes: -PROC5TA PO; +PROC5TAB57 PO
[2020-04-07 23:16] LABS: BASO % 0.6 % (0.0-1.0); EOS % 0.4 % (0.0-3.0); HEMATOCRIT 34.8 % (36.0-47.0); HEMOGLOBIN 10.5 g/dl (12.0-15.5); LYMPH # 0.7 10^3/uL (1.5-5.0); LYMPH % 9.5 % (24.0-44.0); MEAN CORPUSCULAR HEMOGLOBIN 26.4 pg (27.0-33.0); MEAN CORPUSCULAR HGB CONC 30.2 g/dl (32.0-36.5); MEAN CORPUSCULAR VOLUME 87.4 fl (80.0-96.0); MONO # 0.5 10^3/uL (0.0-0.8); MONO % 7.5 % (0.0-5.0); NEUTROPHILS # 5.9 10^3/uL (1.5-8.5); NEUTROPHILS % 81.6 % (36.0-66.0); PLATELET COUNT, AUTOMATED 345 10^3/uL (150-450); RED BLOOD COUNT 3.98 10^6/uL (4.00-5.40); WHITE BLOOD COUNT 7.2 10^3/uL (4.0-10.0)
[2020-04-14] MEDS ORDERED: LONS1TAB2 PO ×2 (08:49→09:37)
[2020-04-15 14:05] LABS: ALBUMIN 2.6 GM/DL (3.2-5.2); ALT/SGPT 11 U/L (12-78); BILIRUBIN,DIRECT < 0.1 MG/DL (0.0-0.2); BILIRUBIN,TOTAL 0.3 MG/DL (0.2-1.0); BLOOD UREA NITROGEN 6 MG/DL (7-18); CALCIUM LEVEL 8.9 MG/DL (8.8-10.2); CARBON DIOXIDE LEVEL 31 MEQ/L (21-32); CHLORIDE LEVEL 104 MEQ/L (98-107); CK-MB VALUE MASS < 1.0 NG/ML (<3.6); CPK CREATINE PHOSPHOKINASE 31 U/L (26-192); CREATININE FOR GFR 0.45 MG/DL (0.55-1.30); FREE T4 1.23 NG/DL (0.76-1.46); GLOMERULAR FILTRATION RATE > 60.0 (>45); GLUCOSE, FASTING 91 MG/DL (70-100); MB/CK RELATIVE INDEX 3.23 (< OR =4); POTASSIUM SERUM 3.4 MEQ/L (3.5-5.1); SODIUM LEVEL 142 MEQ/L (136-145); THYROID STIMULATING HORMONE 0.854 uIU/ML (0.358-3.740); TOTAL PROTEIN 6.4 GM/DL (6.4-8.2); TROPONIN I < 0.02 NG/ML (< 0.10)
[2020-04-20] MEDS ORDERED: LONS1TAB2 PO (12:56)
--- NOTE | 2020-04-27 11:29 | ECGEPIP ---
SINUS RHYTHM NORMAL ECG DELAYED R PROGRESSION POSSIBLE PRIOR INFERIOR INFARCT NO OLD FOR COMPARISON SEE SCANNED DOWNTIME REPORT MTDD
--- NOTE | 2020-05-01 10:14 | REP ---
CT OF THE HEAD WITHOUT CONTRAST: HISTORY: Dizziness. History of malignancy. TECHNIQUE: Axial noncontrast images from the skull base to the vertex with coronal reformations. FINDINGS: Mild age related atrophy and microvascular change is noted. The ventricles are symmetric. Mccurdy-white differentiation is maintained. No acute intracranial hemorrhage, mass or mass effect. No extra-axial fluid collection. The calvarium is intact. The paranasal sinuses and mastoid air cells are clear. IMPRESSION: Mild age related atrophy and microvascular ischemic changes. No acute intracranial pathology or trauma/injury appreciated MTDD
[2020-05-16] MEDS ORDERED: LIDO2.5C15 TOP (15:35)
[2020-06-22] MEDS ORDERED: LONS1TAB2 PO (09:08)
== END 2020-03-07 17:45 | disposition home or self-care (01) ==
LOC: M ED 11:51
DX: H81.11 Benign paroxysmal vertigo, right ear (principal); J44.9 Chronic obstructive pulmonary disease, unspecified; C18.9 Malignant neoplasm of colon, unspecified; Z92.21 Personal history of antineoplastic chemotherapy; Z79.899 Other long term (current) drug therapy

== ENCOUNTER → 2020-03-24 | Outpatient (CLI) | payer OTHER ==
[~2020-03-24] MED LIST changes: +LONS1TAB2 PO
== END ==
LOC: M ONCR 09:40
PROVIDERS: ATTEND General Practice
DX: C18.9 Malignant neoplasm of colon, unspecified (principal); C79.89 Secondary malignant neoplasm of other specified sites

== ENCOUNTER → 2020-03-30 | Outpatient (CLI) | payer OTHER ==
[~2020-03-30] MED LIST changes: +PROHANCE 279.3MG/ML 15ML VIAL As Ordered ONE
--- NOTE | 2020-03-30 09:27 | REPVR ---
PROCEDURE INFORMATION: Exam: MR Head Without and With Contrast Exam date and time: 03/30/2020 8:05 AM Age: 59 years old Clinical indication: Condition or disease; History of cancer (specify primary cancer site): ; Primary cancer: Colon; Additional info: Colon cancer TECHNIQUE: Imaging protocol: MR of the head without and with intravenous contrast. Contrast material: PROHANCE; Contrast volume: 12 ml; Contrast route: INTRAVENOUS (IV); COMPARISON: PT PET/CT SKULL BASE TO MID THIGH - OUTSIDE PRIOR 02/10/2019 1:52 PM FINDINGS: Brain: There is no extra-axial collection or intra-axial mass. Mild diffuse volume loss is within the range of normal for patient age. There are foci of increased T2 and FLAIR signal within the periventricular and subcortical white matter, nonspecific but typically small-vessel ischemia in this age group. There is no abnormal enhancement within the brain. Ventricles: Normal. No ventriculomegaly. Bones/joints: Unremarkable. Sinuses: Normal as visualized. No acute sinusitis. Mastoid air cells: Normal as visualized. No mastoid effusion. Orbits: Unremarkable. Soft tissues: Unremarkable. IMPRESSION: No acute intracranial abnormality. Electronically signed by: Ericka Acuna On 03/30/2020 09:27:05 AM
== END ==
LOC: M RAD 08:00
PROVIDERS: ATTEND Internal Medicine Medical Oncology
DX: C18.9 Malignant neoplasm of colon, unspecified (principal)
CPT/HCPCS: 70553; A9576

== ENCOUNTER 2020-04-07 12:00 | Outpatient (RCR) | payer OTHER ==
[~2020-04-07 12:00] MED LIST changes: -LONS1TAB2 PO; -PROHANCE 279.3MG/ML 15ML VIAL As Ordered ONE
[2020-04-14] MEDS ORDERED: LONS1TAB2 PO ×2 (08:49→09:37)
[2020-04-20] MEDS ORDERED: LONS1TAB2 PO (12:56)
[2020-05-16] MEDS ORDERED: LIDO2.5C15 TOP (15:35)
[2020-06-22] MEDS ORDERED: LONS1TAB2 PO (09:08)
== END 2020-04-10 | disposition home or self-care (01) ==
LOC: M PT 12:00
PROVIDERS: ATTEND Internal Medicine Medical Oncology
DX: I89.0 Lymphedema, not elsewhere classified (principal)

== ENCOUNTER → 2020-04-10 | Outpatient (CLI) | payer OTHER ==
[~2020-04-10] MED LIST changes: +LONS1TAB2 PO
== END ==
LOC: M ONCR 14:51
PROVIDERS: ATTEND General Practice
DX: C18.9 Malignant neoplasm of colon, unspecified (principal); C79.89 Secondary malignant neoplasm of other specified sites; C77.4 Secondary and unspecified malignant neoplasm of inguinal and lower limb lymph nodes

== ENCOUNTER 2020-04-21 11:53 | Outpatient (RCR) | payer OTHER ==
[2020-05-16] MEDS ORDERED: LIDO2.5C15 TOP (15:35)
[2020-06-22] MEDS ORDERED: LONS1TAB2 PO (09:08)
== END 2020-05-10 ==
LOC: M PT 11:53
PROVIDERS: ATTEND Internal Medicine Medical Oncology
DX: I89.0 Lymphedema, not elsewhere classified (principal)

== ENCOUNTER → 2020-05-02 | Outpatient (CLI) | payer OTHER ==
--- NOTE | 2020-05-09 15:49 | REP ---
LEFT AXILLARY ULTRASOUND HISTORY: Mass. FINDINGS: Real-time sonographic evaluation of left axillary region performed. Comparisons made with prior ultrasound 01/05/2019 and PET/CT 01/04/2020. Once again, there is a heterogeneous hypoechoic irregular soft tissue mass with internal arterial blood flow with Doppler evaluation. The mass measures approximately 4.6 x 3.8 x 5.1 cm. It appears to have mildly increased in size since the prior studies. Maximum diameter on the PET/CT is 4.1 cm. No fluid collection is seen in the left axillary region. IMPRESSION: Large irregular solid mass left axilla, mildly increased in size when compared to prior studies. No evidence of left axillary fluid collection. MTDD
== END ==
LOC: M RAD 15:53
PROVIDERS: ATTEND Internal Medicine Medical Oncology
DX: R22.2 Localized swelling, mass and lump, trunk (principal); C18.7 Malignant neoplasm of sigmoid colon

== ENCOUNTER 2020-05-24 10:45 | Outpatient (RCR) | payer OTHER ==
[2020-05-25] MEDS ORDERED: LIDO2.5C15 TOP (11:46)
== END 2020-06-10 ==
LOC: M PT 10:45
PROVIDERS: ATTEND Internal Medicine Medical Oncology
DX: I89.0 Lymphedema, not elsewhere classified (principal)

== ENCOUNTER → 2020-06-07 | Outpatient (CLI) | payer OTHER ==
[~2020-06-07] MED LIST changes: +BACT800T5 PO; +CEPH500C PO; +D31000TA2 PO; +ELIQ5TAB PO; +GABA-282 PO; +GASTROGRAFIN SOLUTION 30ML (Q9963) As Ordered ONE; +ISOVUE-370 76% 100ML VIAL As Ordered ONE; +K-TA10TA2 PO; +KEFL500C17 PO; +LOVE0.4I2 SC; +METH5TA PO; +METH5TAB3 PO; +MORP10SO PO; +OXYC-517 PO; +PERC5TAB12 PO; +wheel chair
--- NOTE | 2020-06-08 13:13 | REP ---
INDICATION: GI CA W/ METS COMPARISON: 07/30/2019 TECHNIQUE: Axial contrast enhanced images from the thoracic inlet to the upper abdomen with coronal and sagittal reformations using 100 ml Isovue 370 intravenous contrast material followed by CT of the abdomen and pelvis. This CT examination was performed using the following dose reduction techniques: Automated exposure control, adjustment of mA and/or kv according to the patient's size, and use of iterative reconstruction technique. FINDINGS: The lung brandon demonstrate advanced COPD/emphysematous changes without obvious pulmonary metastatic foci, consolidation or effusion. The mediastinum demonstrates atherosclerotic changes to the thoracic aorta and coronary arteries without aortic aneurysm or dissection and no evidence for cardiomegaly or pericardial effusion. No right axillary, mediastinal, or hilar adenopathy noted. Cdofxt-Q-Ahoc identified with tip extending into the SVC/right atrium. The previously noted 3.0 x 2.2 cm metastatic focus in the posterior left thoracic inlet just posterior to the clavicle has considerably enlarged and now measures roughly 5.6 x 4.5 cm maximal diameter. A heterogeneous enhancing lesion in the left axillary space with central low density presumed necrosis is consistent with metastatic focus and measures approximately 5.5 cm maximal diameter and roughly 7.4 cm in craniocaudal length. The osseous structures appear intact and normal. IMPRESSION: 1. Two large heterogeneous metastatic foci at the thoracic inlet/left shoulder region and left axillary region as described above which may be somewhat increased from prior examination. 2. The lung brandon demonstrate chronic changes without evidence for intrathoracic metastatic disease. <Electronically signed by Zak Dykes > 06/08/20 [id number]
--- NOTE | 2020-06-08 13:22 | REP ---
INDICATION: GI CA W/ METS. COMPARISON: 07/30/2019 TECHNIQUE: Axial contrast-enhanced images from the lung bases to the pubic symphysis using 100 cc Isovue 370 intravenous contrast material. Axial coronal images were obtained along with delayed images of the abdomen.. This CT examination was performed using the following dose reduction techniques: Automated exposure control, adjustment of mA and/or kv according to the patient's size, and the use of iterative reconstruction technique. FINDINGS: Liver, spleen, pancreas, gallbladder, bilateral adrenal glands and kidneys are normal. The enteric system including stomach, small, and large bowel appears normal. No evidence for obstruction or acute inflammatory process. Normal terminal ileum and appendix are identified in the right lower quadrant. Colonic diverticulosis is appreciated primarily involving the sigmoid colon and somewhat irregular areas of mucosal thickening through the mid sigmoid are nonspecific. These may reflect chronic muscular hypertrophy related to prior diverticulitis and or the possibility of malignancy must be considered. Pelvis demonstrates normal bladder and age-appropriate uterus/adnexa. No ascites. No free air. No obvious intraperitoneal or retroperitoneal adenopathy. Abdominal aorta and vasculature demonstrate atherosclerotic changes without aneurysm or dissection. The osseous structures are intact and without focal abnormality. There is a small intramuscular metastatic focus in the left adductor muscular compartment measuring approximately 3.3 x 2.5 cm which may be slightly decreased in size and conspicuity. IMPRESSION: 1. Small metastatic focus noted in the left adductor musculature of the left thigh may be slightly decreased from prior examination. 2. No further obvious mass lesion or metastatic foci identified. No ascites. No adenopathy. No free air. 3. Colonic and sigmoid diverticulosis along with mild irregular mucosal thickening of the mid sigmoid colon which is nonspecific but may warrant further evaluation with colonoscopy. <Electronically signed by Zak Dykes > 06/08/20 [id number]
== END ==
LOC: M RAD 12:28
PROVIDERS: ATTEND Internal Medicine Medical Oncology
DX: C18.9 Malignant neoplasm of colon, unspecified (principal); R93.89 Abnormal findings on diagnostic imaging of other specified body structures
CPT/HCPCS: 71260; 74177; Q9963; Q9967

== ENCOUNTER → 2020-06-28 | Outpatient (CLI) | payer OTHER ==
[~2020-06-28] MED LIST changes: -BACT800T5 PO; -CEPH500C PO; -D31000TA2 PO; -ELIQ5TAB PO; -GABA-282 PO; -GASTROGRAFIN SOLUTION 30ML (Q9963) As Ordered ONE; -ISOVUE-370 76% 100ML VIAL As Ordered ONE; -K-TA10TA2 PO; -KEFL500C17 PO; +LIDOCAINE 1% MDV 20ML VIAL As Ordered ONE; -LOVE0.4I2 SC; -METH5TA PO; -METH5TAB3 PO; -MORP10SO PO; -OXYC-517 PO; -PERC5TAB12 PO; +SODIUM BICARBONATE 8.4% INJ 50MEQ 50 ML VIAL As Ordered ONE; -wheel chair
[2020-06-28 13:18] VITALS: BP 132/64
--- NOTE | 2020-06-28 17:52 | REP ---
INDICATION: LT SHOULDER MASS,. COMPARISON: CT chest with contrast dated 06/07/2020 TECHNIQUE: The procedure was performed by Tameka Watt [facility], under the direct supervision of Dr. Mccurdy. The risks and benefits of the procedure were explained to the patient and an informed consent was obtained both verbally and written. Directly prior to the start of the procedure a formal time-out was completed in the procedure room. FINDINGS: Using ultrasound guidance the left superficial shoulder mass was localized. The skin was prepped and draped in a sterile fashion. Ten mL of buffered lidocaine was used as a local anesthetic. Using ultrasound guidance a 17/18 gauge coaxial needle biopsy system was inserted and advanced into the left shoulder mass. Six core biopsy specimens were obtained and sent to the laboratory for further analysis. The patient tolerated the procedure well and there were no immediate complications. After the appropriate amount of monitored convalescence the patient was discharged from the department. IMPRESSION: 1. Ultrasound guided biopsy left superficial shoulder mass. <Electronically signed by Tameka Watt > 06/28/20 [id number] <Electronically signed by Chris Mccurdy > 06/28/20 [id number]
== END ==
LOC: M IRPRO 12:02
PROVIDERS: ATTEND Internal Medicine Medical Oncology
DX: C79.2 Secondary malignant neoplasm of skin (principal); C18.9 Malignant neoplasm of colon, unspecified

== ENCOUNTER 2020-07-10 09:23 | Emergency (ER) | payer MEDICAID, OTHER ==
[~2020-07-10] VITALS: Ht 154.9 cm; Wt 61.4 kg
[~2020-07-10 09:23] MED LIST changes: -LIDOCAINE 1% MDV 20ML VIAL As Ordered ONE; -SODIUM BICARBONATE 8.4% INJ 50MEQ 50 ML VIAL As Ordered ONE
[2020-07-10] MEDS ORDERED: ONDANSETRON 4MG/2ML VIAL IV ONE (10:00)
[2020-07-10] MEDS: MORPHINE 4 MG/ML 1ML VIAL/SYRINGE (J2270) IV PRN ×2 (10:19→11:06)
[2020-07-10 10:27] LABS: BASO % 0.3 % (0.0-1.0); EOS % 0.1 % (0.0-3.0); HEMATOCRIT 29.2 % (36.0-47.0); HEMOGLOBIN 8.9 g/dl (12.0-15.5); LYMPH # 0.4 10^3/uL (1.5-5.0); LYMPH % 5.5 % (24.0-44.0); MEAN CORPUSCULAR HEMOGLOBIN 25.9 pg (27.0-33.0); MEAN CORPUSCULAR HGB CONC 30.5 g/dl (32.0-36.5); MEAN CORPUSCULAR VOLUME 84.9 fl (80.0-96.0); MONO # 0.3 10^3/uL (0.0-0.8); MONO % 3.9 % (0.0-5.0); NEUTROPHILS # 6.6 10^3/uL (1.5-8.5); NEUTROPHILS % 88.2 % (36.0-66.0); PLATELET COUNT, AUTOMATED 293 10^3/uL (150-450); RED BLOOD COUNT 3.44 10^6/uL (4.00-5.40); WHITE BLOOD COUNT 7.5 10^3/uL (4.0-10.0)
[2020-07-10 10:47] LABS: ERYTHROCYTE SEDIMENTATION RATE > 140 mm/hr (0-30)
[2020-07-10 10:51] LABS: BLOOD UREA NITROGEN 8 MG/DL (7-18); CALCIUM LEVEL 8.8 MG/DL (8.8-10.2); CARBON DIOXIDE LEVEL 30 MEQ/L (21-32); CHLORIDE LEVEL 96 MEQ/L (98-107); CREATININE FOR GFR 0.54 MG/DL (0.55-1.30); GLOMERULAR FILTRATION RATE > 60.0 (>45); GLUCOSE, FASTING 94 MG/DL (70-100); POTASSIUM SERUM 3.3 MEQ/L (3.5-5.1); SODIUM LEVEL 132 MEQ/L (136-145)
--- NOTE | 2020-07-10 11:13 | REP ---
INDICATION: swelling pain COMPARISON: None. TECHNIQUE: Mccurdy scale and color Doppler evaluation of the left upper extremity using linear high frequency transducer. FINDINGS: Ultrasound examination of the left upper extremity demonstrates acute thrombus in the axillary, proximal basilic and distal basilic veins. Remainder of examination appears normal. IMPRESSION: Acute occlusive thrombus identified in the left axillary, and proximal/distal basilic veins. <Electronically signed by Zak Dykes > 07/10/20 [id number]
--- NOTE | 2020-07-10 11:15 | REP ---
INDICATION: localized swelling/erythema inner aspect COMPARISON: 08/02/2019 TECHNIQUE: Real time villalta scale and color evaluation using B-mode sonography. FINDINGS: There is a complex hypoechoic solid appearing lesion measuring 6.5 x 4.3 x 6.3 cm in the left axilla. Color evaluation demonstrates internal flow. Findings are suspicious for metastatic focus. IMPRESSION: Complex solid vascular mass in the left axilla consistent with metastatic focus. <Electronically signed by Zak Dykes > 07/10/20 [id number]
[2020-07-10] MEDS ORDERED: PERCOCET 5MG/325MG TAB PO ONE (11:30)
[2020-07-10] MEDS ORDERED: POTASSIUM CHLORIDE 10 MEQ SR TABLET PO ONE (11:45)
[2020-07-10] MEDS ORDERED: PERC5TAB12 PO (12:56)
[2020-07-10] MEDS ORDERED: ELIQ5TAB PO (12:57)
[2020-07-10 14:57] VITALS: BP 120/60
--- NOTE | 2020-07-10 19:07 | ECGEPIP ---
[facility] - ED Test Date: 2020-07-10 Pat Name: MANSI BURTON Department: Room: - Gender: Female [employer]: nilda : 1960 Requested By: Symone Gee Order Number: [id number] Reading MD: Tip Adams Measurements Intervals [place] Rate: 81 P: GA: 0 QRS: -17 QRSD: 95 T: 7 QT: 362 QTc: 423 Interpretive Statements SINUS RHYTHM WITH SINUS ARRHYTHMIA NONSPECIFIC T WAVE ABNORMALITY(S) NO PRIORS FOR COMPARISON Electronically Signed on 07-10-2020 19:07:50 EST by Tip Adams
[2020-07-14] MEDS ORDERED: PERC5TAB12 PO (13:01)
[2020-07-20] MEDS ORDERED: KEFL500C17 PO (09:49)
== END 2020-07-10 15:15 | disposition home or self-care (01) ==
LOC: M ED 09:23
DX: I82.622 Acute embolism and thrombosis of deep veins of left upper extremity (principal); J44.9 Chronic obstructive pulmonary disease, unspecified; J45.909 Unspecified asthma, uncomplicated; K21.9 Gastro-esophageal reflux disease without esophagitis; E78.5 Hyperlipidemia, unspecified; Z92.21 Personal history of antineoplastic chemotherapy; Z79.899 Other long term (current) drug therapy; Z79.01 Long term (current) use of anticoagulants; Z87.891 Personal history of nicotine dependence
CPT/HCPCS: 76882; 80048; 85025; 85652; 86140; 93005; 93971; 96374; 96375; 96376; 99285; J2270; J2405

== ENCOUNTER 2020-07-25 08:21 | Inpatient (IN) | payer OTHER, MEDICAID ==
[~2020-07-25] VITALS: Ht 154.9 cm; Wt 60.0 kg
[~2020-07-25 08:21] MED LIST changes: +ELIQ5TAB PO; +KEFL500C17 PO; +PERC5TAB12 PO
[2020-07-25] MEDS ORDERED: MORPHINE 4 MG/ML 1ML VIAL/SYRINGE (J2270) IV ONE (09:15)
[2020-07-25] MEDS ORDERED: ONDANSETRON 4MG/2ML VIAL IV ONE (09:15)
[2020-07-25 09:50] LABS: BASO % 0.3 % (0.0-1.0); HEMOGLOBIN 9.2 g/dl (12.0-15.5); LYMPH # 0.4 10^3/uL (1.5-5.0); LYMPH % 2.9 % (24.0-44.0); MEAN CORPUSCULAR HEMOGLOBIN 25.9 pg (27.0-33.0); MEAN CORPUSCULAR HGB CONC 29.7 g/dl (32.0-36.5); MEAN CORPUSCULAR VOLUME 87.3 fl (80.0-96.0); MONO # 0.7 10^3/uL (0.0-0.8); MONO % 5.3 % (0.0-5.0); NEUTROPHILS # 11.4 10^3/uL (1.5-8.5); PLATELET COUNT, AUTOMATED 378 10^3/uL (150-450); RED BLOOD COUNT 3.55 10^6/uL (4.00-5.40); WHITE BLOOD COUNT 12.7 10^3/uL (4.0-10.0)
[2020-07-25 09:54] LABS: INR 1.36; PROTHROMBIN TIME 17.1 SECONDS (12.5-14.3)
[2020-07-25 09:55] LABS: PARTIAL THROMBOPLASTIN TIME 42.9 SECONDS (24.2-38.5)
[2020-07-25 10:05] LABS: BLOOD UREA NITROGEN 8 MG/DL (7-18); CALCIUM LEVEL 9.4 MG/DL (8.8-10.2); CARBON DIOXIDE LEVEL 31 MEQ/L (21-32); CHLORIDE LEVEL 96 MEQ/L (98-107); CREATININE FOR GFR 0.58 MG/DL (0.55-1.30); GLOMERULAR FILTRATION RATE > 60.0 (>45); GLUCOSE, FASTING 103 MG/DL (70-100); POTASSIUM SERUM 3.3 MEQ/L (3.5-5.1); SODIUM LEVEL 134 MEQ/L (136-145)
--- NOTE | 2020-07-25 10:53 | REP ---
INDICATION: worsening LUE pain,swelling,redness COMPARISON: 07/10/2020. TECHNIQUE: Real time compression and duplex Doppler evaluation of the Left upper extremity deep venous system is performed. FINDINGS: The left jugular and subclavian veins as well as cephalic vein are compressible with no intraluminal thrombus. There appears to be normal internal flow. Thrombus is again seen in the left axillary vein as seen on the prior ultrasound. There is new thrombus in the brachial veins. This is almost completely occlusive with trace flow noted in the brachial veins. The left basilic vein is occluded by thrombus. IMPRESSION: Left axillary and basilic vein thrombosis again noted. There is new thrombus in the brachial veins which is almost completely occlusive with trace flow noted. <Electronically signed by Chris Mccurdy > 07/25/20 [id number]
--- NOTE | 2020-07-25 11:00 | REP ---
INDICATION: worsening LUE pain,swelling,redness, firm area axilla. COMPARISON: 07/10/2020. TECHNIQUE: Real-time sonographic evaluation of left axillary region performed. FINDINGS: There is a bilobed solid mass versus 2 adjacent contiguous masses present in the left axilla. These are solid and consistent with metastatic disease. Both demonstrate internal blood flow with Doppler evaluation. One component measures approximately 3.6 x 2.9 x 3.0 cm and the other 3.0 x 2.3 x 3.3 cm. IMPRESSION: Solid bilobed mass versus 2 contiguous masses in the left axillary region, as seen on prior study, consistent with metastatic disease. <Electronically signed by Chris Mccurdy > 07/25/20 [id number]
[2020-07-25] MEDS ORDERED: CEPH500C PO (11:50)
[2020-07-25] MEDS ORDERED: D31000TA2 PO (11:50)
[2020-07-25] MEDS ORDERED: ELIQ5TAB PO (11:50)
--- NOTE | 2020-07-25 13:26 | CR.PDOC ---
General Date of Consultation: Jul 25, 2020 Referring Provider: KIRA MCGOWAN PA-C Attending Physician: ELIF GUARDADO DO Consultation REASON FOR CONSULTATION/CHIEF COMPLAINT: Upper extremity DVT failed outpatient therapy with new nearly occlusive DVT HISTORY OF PRESENT ILLNESS: Mrs. 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 She has had lymph edema in the left arm chronically, but in the past few weeks had worsening pain. On 07/10/2020, she an US upper extremity found an acute occlusive thrombus in the left axillary and proximal/distal basilic veins. She was started on apixaban 5mg BID. A few days afterwards, she started developing erythema. Pain, swelling, and erythema started to worsened. On 07/20/2020, her bistro attendant/oncologist, Dr. Jones, started patient on antibiotics. There continued to be no improvement of symptoms. The pain was so severe, she does not lift her left arm and uses the right arm to move left arm. Describes the pain as 8/10, but when she moves the arm, the pain worsens. It is an achy burning pain with tenderness to touch. She also reports paresthesias in the finger tips. She wears a glove over her left hand to keep it warm. She came to the ED today. She was given morphine which controlled the pain. I spoke with her bistro attendant/oncologist, Dr. Jones. Dr. Jones had recommended patient see vascular surgery. We do not have vascular surgery coverage this week. Dr. Jones then recommended that we transfer the patient with vascular s urgery. I spoke with the ED who is currently working on patient transfer. ALLERGIES: Please see below. HOME MEDICATIONS: Please see below. PAST MEDICAL HISTORY: 1. Hyperlipidemia 2. GERD 3. COPD 4. Adenocarcinoma of the colon with L axillary mets 5. Obesity 6. Vit D deficiency 7. Psoriasis 8. Diverticulosis PAST SURGICAL HISTORY: 1. LASIK 2. C section x2 3. T&A 4. Tubal with left oophrectomy at age 14 5. Inguinal hernia repair 6. Port placement FAMILY HISTORY: Father: DM Mother: CAD, DM2, HTN SOCIAL HISTORY: Tobacco use: Former smoker ETOH: Denies Illicit drug use: Denies REVIEW OF SYSTEMS: CONSTITUTIONAL: Denies fever/chills HEENT: Reports temporary changes in vision. She had felt tunnel vision on Friday which rapidly resolved CARDIOVASCULAR: Denies chest pain or palpitations RESPIRATORY: Reports chronic dry cough. Denies worsening dyspnea GENITOURINARY: Denies dysuria MUSCULOSKELETAL: Reports left arm pain, swelling, and tenderness GASTROINTESTINAL: Denies abdominal pain or diarrhea SKIN: Left arm erythema NEUROLOGICAL: Paresthesias in left hand PSYCHIATRIC: Reports anxiety and depression PHYSICAL EXAMINATION: VITAL SIGNS: Please see below. GENERAL APPEARANCE: Comfortable, no apparent distress after the morphine HEENT: Head normocephalic, atraumatic RESPIRATORY: Lungs clear to auscultation bilaterally CARDIOVASCULAR: Regular rate and rhythm ABDOMEN: Soft, nontender, normal bowel sounds EXTREMITIES: Mild pitting edema bilaterally. Left upper extremity swelling, erythema, and tenderness MUSCULOSKELETAL: 5/5 in right arm. She does not want to move left arm due to pain, weak squeeze in left hand NEUROLOGICAL: CN 3-12 grossly intact PSYCHIATRIC: Normal mood and affect LABORATORY DATA: Please see below. ASSESSMENT/PLAN: 1. Left arm DVT failed outpatient treatment -Spoke with hemetology/oncology, Dr. Jones. Recommended that patient be transferred to a facility with vascular surgery to evaluate the patient. Spoke with ED. Plan for transfer -Apixaban for AC, but would need to be switched to Lovenox 1mg/kg for failing outpatient therapy 2. Metastatic mucinous adenocarcinoma with GI primary site -Last dose of chemotherapy was last night, 5th cycle -On Lonsurf for chemotherapy -Follow up with heme/onc after hospital discharge 3. COPD -Stable, not in exacerbation -Continue albuterol PRN 4. GERD -Omeprazole 5. Vitamin D deficiency -Continue supplements 6. DVT ppx -On AC for DVT Thank you for allowing us to participate in patient care. Patient to be transferred to facility with vascular surgery to evaluate as recommended by hematology/oncology. Vital Signs/I&O Vital Signs Date Time Temp Pulse Resp B/P (MAP) Pulse Ox O2 Delivery O2 Flow Rate FiO2 07/25/20 12:14 97.7 92 18 115/53 (73) 97 Room Air Laboratory Data Labs 24H Laboratory Tests 2 07/25/20 09:22: Immature Granulocyte % (Auto) 1.5, Neutrophils (%) (Auto) 90.0H, Lymphocytes (%) (Auto) 2.9L, Monocytes (%) (Auto) 5.3H, Eosinophils (%) (Auto) 0.0, Basophils (%) (Auto) 0.3, Neutrophils # (Auto) 11.4H, Lymphocytes # (Auto) 0.4L, Monocytes # (Auto) 0.7, Eosinophils # (Auto) 0.0, Basophils # (Auto) 0.0, Nucleated Red Blood Cells % (auto) 0.0, Prothrombin Time 17.1H, Prothromb Time International Ratio 1.36, Activated Partial Thromboplast Time 42.9H, Anion Gap 7L, Glomerular Filtration Rate > 60.0, Lactic Acid Level 1.3, Calcium Level 9.4 07/25/20 12:03: Coronavirus (COVID-19)(PCR) NEGATIVE CBC/BMP Laboratory Tests 07/25/20 09:22 Allergies Coded Allergies: No Known Allergies (Unverified , 02/02/19) Home Medications Scheduled Apixaban (Eliquis) 5 Mg Tablet, 5 MG PO BID, (Reported) Cephalexin (Cephalexin) 500 Mg Capsule, 500 MG PO TID, (Reported) FILLED 07/20/20 FOR 10 DAYS Cholecalciferol (Vitamin D3) (Vitamin D3) 1,000 Unit Tablet, 1,000 UNITS PO DAILY, (Reported) [place]-3 Fatty Acids/Fish Oil (Fish Oil 1,000 mg Capsule) 1 Each Capsule, 1,600 MG PO DAILY, (Reported) Omeprazole (Omeprazole) 40 Mg Capsule.dr, 40 MG PO DAILY, (Reported) Prochlorperazine (Prochlorperazine Maleate) 5 Mg Tablet, 5 MG PO Q6-8HP for 28 Days, #20 Take 5 mg po q 6 hours prn nausea uncontrolled by Zofran Silver Sulfadiazine (Silvadene) 400 Gm Cream..g., 400 GRAMS EXT BID for apply to axillary skin, #1 Simvastatin (Simvastatin) 40 Mg Tablet, 40 MG PO DAILY, (Reported) Trifluridine/Tipiracil HCl (Lonsurf 15 mg-6.14 mg Tablet) 1 Each Tablet, 3 TAB PO BID for 28 Days, #60 TAKE FRIDAY THRU FRIDAY 3 IN THE MORNING, 3 IN EVENING FOR 2 WEEKS THEN TAKE 2 WEEKS OFF. Vitamin E (Dl,Tocopheryl Acet) (Vitamin E) 400 Unit Capsule, 400 UNIT PO DAILY, (Reported) Scheduled PRN Albuterol Sulfate (Ventolin Hfa) 18 Gm Hfa.aer.ad, 2 PUFF INH Q6H PRN for SHORTNESS OF BREATH, (Reported) Ondansetron HCl (Zofran) 4 Mg Tablet, 4 MG PO Q6-8HP PRN for nausea/vomiting, #120 Take 4 mg po q 6 hours prn nausea from chemotherapy Oxycodone HCl/Acetaminophen (Percocet 5-325 mg Tablet) 1 Each Tablet, 1 TAB PO Q6H PRN for PAIN, #40 ELIF GUARDADO DO Jul 25, 2020 13:26
[2020-07-25] MEDS ORDERED: CEPHALEXIN 500 MG CAP PO ONE (14:15)
[2020-07-25] MEDS ORDERED: ONDANSETRON 4MG/2ML VIAL IV PRN (14:30)
[2020-07-25] MEDS ORDERED: PERCOCET 5MG/325MG TAB PO PRN (14:30)
[2020-07-25] MEDS ORDERED: ALBUTEROL 90 MCG/ACT 8GM HFA INHALER INH PRN (14:30)
--- NOTE | 2020-07-25 14:40 | RADENCPD ---
Date/Time of Encounter Date of Encounter: Jul 25, 2020 Time of Encounter: 14:00 Encounter Called by ED, asked to comment on whether or not additional RT to Rose's treatment refractory left axillary adenopathy would be of benefit as she presented with increased pain and swelling in the LUE and has been found to have progression of DVTs in the LUE vasculature. I visited with Rose at bedside, she states her pain is at times unbearable. She has very limited mobility in the LUE, cannot extend the arm full or abduct. She prefers to hold it in front of her, lest she provoke pain with movement. I explained that based on her prior radiation to the left axilla (50 Gy completed 11/09/19) which was complicated by CTCAE grade 3 radiation dermatitis, which took months to resolve, and because her disease did not respond dramatically and now has grown on most recent staging CT chest from 06/07/20, that additional radiation to this site is only likely to cause her further vascular and cutaneous compromise, and not at all likely to control the racquel disease. She was understanding of this and expected as much. ROGER SEGUNDO MD Jul 25, 2020 14:40
[2020-07-25] MEDS ORDERED: POTASSIUM CHLORIDE 10 MEQ SR TABLET PO ONE (15:00)
[2020-07-25 16:15] VITALS: BP 132/60
[2020-07-25] MEDS: VITAMIN D 1,000 INTERNATIONAL UNITS TABLET PO SCH (16:43)
--- NOTE | 2020-07-25 17:22 | HPEPDOC ---
General Date of Admission Jul 25, 2020 at 14:15 Date of Service: Jul 25, 2020 Chief Complaint The patient is a 60-year-old female admitted with a reason for visit of Colorectal Cancer,Stage Iv,Left Upper Extremity De. Source: Patient History of Present Illness Mrs. 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 She has had lymph edema in the left arm chronically, but in the past few weeks had worsening pain. On 07/10/2020, she an US upper extremity found an ac rajni occlusive thrombus in the left axillary and proximal/distal basilic veins. She was started on apixaban 5mg BID. A few days afterwards, she started developing erythema. Pain, swelling, and erythema started to worsened. On 07/20/2020, her supervisor advice/oncologist, Dr. Jones, started patient on ant ibiotics. There continued to be no improvement of symptoms. The pain was so severe, she does not lift her left arm and uses the right arm to move left arm. Describes the pain as 8/10, but when she moves the arm, the pain worsens. It is an achy burning pain with tenderness to touch. She also reports paresthesias in the finger tips. She wears a glove over her left hand to keep it warm. She came to the ED today. She was given morphine which controlled the pain. I spoke with supervisor advice/oncologist, Dr. Jones, who recommended patient to see vascular surgery. No vascular surgery coverage this week. ER called out to [facility], but no bed availability. ER called out to [facility] and spoke with vascular surgery there. No need for acute intervention and recommended Lovenox. Patient will be switched from apixaban to Lovenox today Home Medications Scheduled Apixaban (Eliquis) 5 Mg Tablet, 5 MG PO BID, (Reported) Cephalexin (Cephalexin) 500 Mg Capsule, 500 MG PO TID, (Reported) FILLED 07/20/20 FOR 10 DAYS Cholecalciferol (Vitamin D3) (Vitamin D3) 1,000 Unit Tablet, 1,000 UNITS PO IGLESIA LY, (Reported) [place]-3 Fatty Acids/Fish Oil (Fish Oil 1,000 mg Capsule) 1 Each Capsule, 1,600 MG PO DAILY, (Reported) Omeprazole (Omeprazole) 40 Mg Capsule.dr, 40 MG PO DAILY, (Reported) Prochlorperazine (Prochlorperazine Maleate) 5 Mg Tablet, 5 MG PO Q6-8HP Take 5 mg po q 6 hours prn nausea uncontrolled by Zofran Silver Sulfadiazine (Silvadene) 400 Gm Cream..g., 400 GRAMS EXT BID for apply to axillary skin Simvastatin (Simvastatin) 40 Mg Tablet, 40 MG PO DAILY, (Reported) Trifluridine/Tipiracil HCl (Lonsurf 15 mg-6.14 mg Tablet) 1 Each Tablet, 3 TAB PO BID TAKE FRIDAY THRU FRIDAY 3 IN THE MORNING, 3 IN EVENING FOR 2 WEEKS THEN TAKE 2 WEEKS OFF. Vitamin E (Dl,Tocopheryl Acet) (Vitamin E) 400 Unit Capsule, 400 UNIT PO DAILY, (Reported) Scheduled PRN Albuterol Sulfate (Ventolin Hfa) 18 Gm Hfa.aer.ad, 2 PUFF INH Q6H PRN for SH ORTNESS OF BREATH, (Reported) Ondansetron HCl (Zofran) 4 Mg Tablet, 4 MG PO Q6-8HP PRN for nausea/vomiting Take 4 mg po q 6 hours prn nausea from chemotherapy Oxycodone HCl/Acetaminophen (Percocet 5-325 mg Tablet) 1 Each Tablet, 1 TAB PO Q6H PRN for PAIN Allergies Coded Allergies: No Known Allergies (Unverified , 02/02/19) Past Medical History Medical History 1. Hyperlipidemia 2. GERD 3. COPD 4. Adenocarcinoma of the colon with L axillary mets 5. Obesity 6. Vit D deficiency 7. Psoriasis 8. Diverticulosis Surgical History 1. LASIK 2. C section x2 3. T&A 4. Tubal with left oophrectomy at age 14 5. Inguinal hernia repair 6. Port placement Family History Father: DM Mother: CAD, DM2, HTN Social History * Smoker: former Smoker Alcohol: Denies Drugs: denies A-FIB/CHADSVASC A-FIB History Current/History of A-Fib/PAF?: No Review of Systems Constitutional: Denies: Chills, Fever Eyes: Reports: Vision change (tunnel vision on Friday which resolved) ENT: Denies: Sore Throat Skin: Reports: Rash (Erythema of left upper extremity) Pulmonary: Reports: Cough (chronic dry cough); Denies: Dyspnea Cardiovascular: Denies: Chest Pain, Palpitations Gastrointestinal: Denies: Abdominal Pain, Diarrhea Genitourinary: Denies: Dysuria Musculoskeletal: Reports: Shoulder Pain (left) Neurological: Reports: Other Symptoms (Paresthesias in the left hand) Psych: Reports: Anxiety, Depression Physical Examination General Exam: Positive: Alert, Cooperative, No Acute Distress Eye Exam: Positive: EOMI; Negative: Sclera icteric ENT Exam: Positive: Atraumatic Neck Exam: Positive: Supple Chest Exam: Positive: Clear to auscultation Heart Exam: Positive: Rate Normal, Regular Rhythm Abdomen Exam: Positive: Normal bowel sounds, Soft; Negative: Tenderness Extremity Exam: Positive: Edema (Mild), Other (Swelling, erythema, and tenderness of left arm) Skin Exam: Positive: Other skin issue (Left shoulder erythema) Neuro Exam: Positive: Cranial Nerves 3-12 NL Psych Exam: Positive: Mental status NL, Mood NL Vital Signs Vital Signs Date Time Temp Pulse Resp B/P (MAP) Pulse Ox O2 Delivery O2 Flow Rate FiO2 07/25/20 16:43 18 07/25/20 16:15 99.0 105 132/60 (84) 95 Room Air Laboratory Data Labs 24H Laboratory Tests 2 07/25/20 09:22: Immature Granulocyte % (Auto) 1.5, Neutrophils (%) (Auto) 90.0H, Lymphocytes (%) (Auto) 2.9L, Monocytes (%) (Auto) 5.3H, Eosinophils (%) (Auto) 0.0, Basophils (%) (Auto) 0.3, Neutrophils # (Auto) 11.4H, Lymphocytes # (Auto) 0.4L, Monocytes # (Auto) 0.7, Eosinophils # (Auto) 0.0, Basophils # (Auto) 0.0, Nucleated Red Blood Cells % (auto) 0.0, Prothrombin Time 17.1H, Prothromb Time International Ratio 1.36, Activated Partial Thromboplast Time 42.9H, Anion Gap 7L, Glomerular Filtration Rate > 60.0, Lactic Acid Level 1.3, Calcium Level 9.4 07/25/20 12:03: Coronavirus (COVID-19)(PCR) NEGATIVE CBC/BMP Laboratory Tests 07/25/20 09:22 Assessment/Plan Mrs. 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 She was first found to have left upper extremity DVT in the axillary and basilic vein on 07/10/2020 and was started on apixaban 5mg BID. It continued to worsen despite therapy. Repeat US of left upper extremity demonstrated left axillary and basilic vein thrombosis plus a new thrombus in the bachial veins. Spoke with hematology/oncology, Dr. Jones. Recommended switching to Lovenox. Plan / VTE VTE Prophylaxis Ordered?: Yes Plan Plan 1. Left arm DVT failed outpatient treatment -Left axillary and basilic vein thrombosis noted on 07/10 -New left brachial vein thrombosis -Spoke with Dr. Jones, recommended vascular surgery. Vascular surgery at [place] was contacted by ED. No intervention at this time. -Lovenox 1mg/kg BID 2. Possible cellulitis of left upper extremity -Erythematous, tender, and swelling -Was on cephalexin outpatient -Elevated WBC -Will use Ceftaroline IV inpatient 3. Metastatic mucinous adenocarcinoma with GI primary site -Last dose of chemotherapy was last night, 5th cycle -On Lonsurf for chemotherapy -Follow up with heme/onc after hospital discharge 4. COPD -Stable, not in exacerbation -Continue albuterol PRN 5. GERD -Omeprazole 6. Vitamin D deficiency -Continue supplements 7. DVT ppx -On Lovenox for DVT treatment ELIF GUARDADO DO Jul 25, 2020 17:21
[2020-07-25] MEDS: ENOXAPARIN 60MG/0.6ML SYRINGE (J1650 PER 10MG) SC SCH (18:41)
[2020-07-25] MEDS: CEFTAROLINE FOSAMIL 600 MG in D5W MINI-BAG PLUS 50 ML IV SCH (20:27)
[2020-07-25] MEDS: ACETAMINOPHEN 500 MG TAB PO SCH (20:27)
[2020-07-25 22:00] VITALS: BP 110/61
[2020-07-25] MEDS: SILVER SULFADIAZINE 1% EXT SCH (22:15)
[2020-07-26] MEDS: ENOXAPARIN 60MG/0.6ML SYRINGE (J1650 PER 10MG) SC SCH ×2 (05:11→18:20)
[2020-07-26 06:00] VITALS: BP 112/61
[2020-07-26 06:19] LABS: HEMATOCRIT 28.7 % (36.0-47.0); HEMOGLOBIN 8.7 g/dl (12.0-15.5); MEAN CORPUSCULAR HEMOGLOBIN 26.8 pg (27.0-33.0); MEAN CORPUSCULAR HGB CONC 30.3 g/dl (32.0-36.5); MEAN CORPUSCULAR VOLUME 88.3 fl (80.0-96.0); PLATELET COUNT, AUTOMATED 338 10^3/uL (150-450); RED BLOOD COUNT 3.25 10^6/uL (4.00-5.40); WHITE BLOOD COUNT 12.6 10^3/uL (4.0-10.0)
[2020-07-26 06:48] LABS: ALBUMIN 2.1 GM/DL (3.2-5.2); ALT/SGPT 24 U/L (12-78); BILIRUBIN,TOTAL 0.4 MG/DL (0.2-1.0); BLOOD UREA NITROGEN 10 MG/DL (7-18); CALCIUM LEVEL 9.6 MG/DL (8.8-10.2); CARBON DIOXIDE LEVEL 31 MEQ/L (21-32); CHLORIDE LEVEL 97 MEQ/L (98-107); CREATININE FOR GFR 0.56 MG/DL (0.55-1.30); GLOMERULAR FILTRATION RATE > 60.0 (>45); GLUCOSE, FASTING 94 MG/DL (70-100); MAGNESIUM LEVEL 2.2 MG/DL (1.8-2.4); POTASSIUM SERUM 3.9 MEQ/L (3.5-5.1); SODIUM LEVEL 135 MEQ/L (136-145); TOTAL PROTEIN 5.8 GM/DL (6.4-8.2)
[2020-07-26] MEDS: OMEPRAZOLE 20 MG CAP PO SCH (09:41)
[2020-07-26] MEDS: SIMVASTATIN 40 MG TAB PO SCH (09:42)
[2020-07-26] MEDS: CEFTAROLINE FOSAMIL 600 MG in D5W MINI-BAG PLUS 50 ML IV SCH ×2 (09:42→21:34)
[2020-07-26] MEDS: ACETAMINOPHEN 500 MG TAB PO SCH ×4 (09:42→21:35)
[2020-07-26] MEDS: VITAMIN D 1,000 INTERNATIONAL UNITS TABLET PO SCH (09:42)
[2020-07-26] MEDS: SILVER SULFADIAZINE 1% EXT SCH (09:43)
[2020-07-26] MEDS ORDERED: LOVE0.4I2 SC (10:26)
[2020-07-26 14:00] VITALS: BP 111/56
--- NOTE | 2020-07-26 20:32 | IPNPDOC ---
Subjective Date Seen The patient was seen on 07/26/20. Subjective Chief Complaint/HPI Mrs. 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 This morning, the pain was about the same. Otherwise denied any fever, dyspnea, or abdominal pain. Reached out to her palliative care/pain management who recently switched her from percocet to oxycodone and gabapentin. Will switch her to new regimen. Objective Physical Examination General Exam: Positive: Alert, Cooperative, No Acute Distress Eye Exam: Positive: EOMI; Negative: Sclera icteric ENT Exam: Positive: Atraumatic Neck Exam: Positive: Supple Chest Exam: Positive: Clear to auscultation Heart Exam: Positive: Rate Normal, Regular Rhythm Abdomen Exam: Positive: Normal bowel sounds, Soft; Negative: Tenderness Extremity Exam: Positive: Edema (Mild), Other (Swelling, erythema, and tenderness of left arm) Skin Exam: Positive: Other skin issue (Left shoulder erythema) Neuro Exam: Positive: Cranial Nerves 3-12 NL Psych Exam: Positive: Mental status NL, Mood NL Assessment /Plan Assessment Mrs. 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 She was first found to have left upper extremity DVT in the axillary and basilic vein on 07/10/2020 and was started on apixaban 5mg BID. It continued to worsen despite therapy. Repeat US of left upper extremity demonstrated left axillary and basilic vein thrombosis plus a new thrombus in the bachial veins. Spoke with hematology/oncology, Dr. Jones. Recommended switching to Lovenox. Spoke with pain management for pain control. Recommended oxycodone and gabap entin. Otherwise, discussed code status with her. She has decided to become DNR/DNI Plan/VTE VTE Prophylaxis Ordered?: Yes Plan 1. Left arm DVT failed outpatient treatment -Left axillary and basilic vein thrombosis noted on 07/10 -New left brachial vein thrombosis -Spoke with Dr. Jones, recommended vascular surgery. Vascular surgery at [place] was contacted by ED. No intervention at this time. -Lovenox 1mg/kg BID -Pain control with oxycodone 10mg q4hrs and gabapentin 300mg qHS per palliative care/pain management recommendations 2. Possible cellulitis of left upper extremity -Erythematous, tender, and swelling -Was on cephalexin outpatient -Elevated WBC -Will use Ceftaroline IV inpatient 3. Metastatic mucinous adenocarcinoma with GI primary site -Last dose of chemotherapy was last night, 5th cycle -On Lonsurf for chemotherapy -Follow up with heme/onc after hospital discharge 4. COPD -Stable, not in exacerbation -Continue albuterol PRN 5. GERD -Omeprazole 6. Vitamin D deficiency -Continue supplements 7. DVT ppx -On Lovenox for DVT treatment VS, I&O, 24H, Fishbone Vital Signs/I&O Vital Signs Date Time Temp Pulse Resp B/P (MAP) Pulse Ox O2 Delivery O2 Flow Rate FiO2 07/26/20 14:00 98.2 90 18 111/56 (74) 98 Room Air I&O- Last 24 Hours up to 6 AM 07/26/20 06:00 Intake Total 560 ml Output Total 0 ml Balance 560 ml Laboratory Data 24H LABS Laboratory Tests 2 07/26/20 05:25: Nucleated Red Blood Cells % (auto) 0.0, Anion Gap 7L, Glomerular Filtration Rate > 60.0, Calcium Level 9.6, Magnesium Level 2.2, Total Bilirubin 0.4, Aspartate Amino Transf (AST/SGOT) 18, Alanine Aminotransferase (ALT/SGPT) 24, Alkaline Phosphatase 148H, Total Protein 5.8L, Albumin 2.1L, Albumin/Globulin Ratio 0.6L CBC/BMP Laboratory Tests 07/26/20 05:25 ELIF GUARDADO DO Jul 26, 2020 20:32
[2020-07-26] MEDS: GABAPENTIN 300 MG CAP PO SCH (21:35)
[2020-07-26] MEDS: SILVER SULFADIAZINE 1% CR 50 GM JAR EXT SCH (21:35)
[2020-07-26 22:00] VITALS: BP 111/56
[2020-07-27 06:00] VITALS: BP 107/56
[2020-07-27] MEDS: ENOXAPARIN 60MG/0.6ML SYRINGE (J1650 PER 10MG) SC SCH ×2 (06:19→17:58)
[2020-07-27] MEDS: oxyCODONE 5MG TAB PO PRN ×3 (06:26→21:05)
[2020-07-27 08:42] LABS: HEMATOCRIT 28.4 % (36.0-47.0); HEMOGLOBIN 8.4 g/dl (12.0-15.5); MEAN CORPUSCULAR HGB CONC 29.6 g/dl (32.0-36.5); MEAN CORPUSCULAR VOLUME 87.9 fl (80.0-96.0); PLATELET COUNT, AUTOMATED 326 10^3/uL (150-450); RED BLOOD COUNT 3.23 10^6/uL (4.00-5.40); WHITE BLOOD COUNT 12.6 10^3/uL (4.0-10.0)
[2020-07-27 09:12] LABS: BLOOD UREA NITROGEN 8 MG/DL (7-18); CALCIUM LEVEL 9.8 MG/DL (8.8-10.2); CARBON DIOXIDE LEVEL 30 MEQ/L (21-32); CHLORIDE LEVEL 97 MEQ/L (98-107); CREATININE FOR GFR 0.59 MG/DL (0.55-1.30); GLOMERULAR FILTRATION RATE > 60.0 (>45); GLUCOSE, FASTING 96 MG/DL (70-100); POTASSIUM SERUM 3.9 MEQ/L (3.5-5.1); SODIUM LEVEL 135 MEQ/L (136-145)
[2020-07-27] MEDS: OMEPRAZOLE 20 MG CAP PO SCH (10:02)
[2020-07-27] MEDS: CEFTAROLINE FOSAMIL 600 MG in D5W MINI-BAG PLUS 50 ML IV SCH ×2 (10:02→21:05)
[2020-07-27] MEDS: VITAMIN D 1,000 INTERNATIONAL UNITS TABLET PO SCH (10:04)
[2020-07-27] MEDS: SIMVASTATIN 40 MG TAB PO SCH (10:05)
[2020-07-27] MEDS: ACETAMINOPHEN 500 MG TAB PO SCH ×4 (10:05→21:06)
[2020-07-27] MEDS: SILVER SULFADIAZINE 1% CR 50 GM JAR EXT SCH ×2 (10:06→21:06)
[2020-07-27 14:00] VITALS: BP 124/64
--- NOTE | 2020-07-27 19:15 | IPNPDOC ---
Subjective Date Seen The patient was seen on 07/27/20. Subjective Chief Complaint/HPI Mrs. 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 Pain slightly better, but has not tried the new regimen. Still have pain. Denies any fever, dyspnea, or abdominal pain. Objective Physical Examination General Exam: Positive: Alert, Cooperative, No Acute Distress Eye Exam: Positive: EOMI; Negative: Sclera icteric ENT Exam: Positive: Atraumatic Neck Exam: Positive: Supple Chest Exam: Positive: Clear to auscultation Heart Exam: Positive: Rate Normal, Regular Rhythm Abdomen Exam: Positive: Normal bowel sounds, Soft; Negative: Tenderness Extremity Exam: Positive: Edema (Mild), Other (Swelling, erythema, and tenderness of left arm) Skin Exam: Positive: Other skin issue (Left shoulder erythema) Neuro Exam: Positive: Cranial Nerves 3-12 NL Psych Exam: Positive: Mental status NL, Mood NL Assessment /Plan Assessment Mrs. 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 She was first found to have left upper extremity DVT in the axillary and basilic vein on 07/10/2020 and was started on apixaban 5mg BID. It continued to worsen despite therapy. Repeat US of left upper extremity demonstrated left axillary and basilic vein thrombosis plus a new thrombus in the bachial veins. Spoke with hematology/oncology, Dr. Jones. Recommended switching to Lovenox. Spoke with pain management for pain control. Recommended oxycodone and gabapentin. Otherwise, discussed code status with her. She has decided to become DNR/DNI. If pain controlled, possible discharge tomorrow Plan/VTE VTE Prophylaxis Ordered?: Yes Plan 1. Left arm DVT failed outpatient treatment -Left axillary and basilic vein thrombosis noted on 07/10 -New left brachial vein thrombosis -Spoke with Dr. Jones, recommended vascular surgery. Vascular surgery at [place] was contacted by ED. No intervention at this time. -Lovenox 1mg/kg BID -Pain control with oxycodone 10mg q4hrs and gabapentin 300mg qHS per palliative care/pain management recommendations 2. Possible cellulitis of left upper extremity -Erythematous, tender, and swelling -Was on cephalexin outpatient -Elevated WBC -Will use Ceftaroline IV inpatient 3. Metastatic mucinous adenocarcinoma with GI primary site -Last dose of chemotherapy was last night, 5th cycle -On Lonsurf for chemotherapy -Follow up with heme/onc after hospital discharge 4. COPD -Stable, not in exacerbation -Continue albuterol PRN 5. GERD -Omeprazole 6. Vitamin D deficiency -Continue supplements 7. DVT ppx -On Lovenox for DVT treatment Disposition: If pain controlled tomorrow, possible discharge tomorrow VS, I&O, 24H, [facility] Vital Signs/I&O Vital Signs Date Time Temp Pulse Resp B/P (MAP) Pulse Ox O2 Delivery O2 Flow Rate FiO2 07/27/20 14:00 100.1 76 18 124/64 (84) 96 Room Air I&O- Last 24 Hours up to 6 AM 07/27/20 06:00 Intake Total 2050 ml Output Total 0 ml Balance 2050 ml Laboratory Data 24H LABS Laboratory Tests 2 07/27/20 08:28: Nucleated Red Blood Cells % (auto) 0.0, Anion Gap 8, Glomerular Filtration Rate > 60.0, Calcium Level 9.8 CBC/BMP Laboratory Tests 07/27/20 08:28 ELIF GUARDADO DO Jul 27, 2020 19:15
[2020-07-27 20:38] VITALS: BP 125/56
[2020-07-27] MEDS: GABAPENTIN 300 MG CAP PO SCH (21:05)
[2020-07-28] MEDS: ENOXAPARIN 60MG/0.6ML SYRINGE (J1650 PER 10MG) SC SCH (05:41)
[2020-07-28] MEDS: oxyCODONE 5MG TAB PO PRN ×2 (05:42→12:00)
[2020-07-28 06:23] VITALS: BP 115/57
[2020-07-28 06:46] LABS: HEMATOCRIT 27.1 % (36.0-47.0); HEMOGLOBIN 7.9 g/dl (12.0-15.5); MEAN CORPUSCULAR HEMOGLOBIN 25.8 pg (27.0-33.0); MEAN CORPUSCULAR HGB CONC 29.2 g/dl (32.0-36.5); MEAN CORPUSCULAR VOLUME 88.6 fl (80.0-96.0); PLATELET COUNT, AUTOMATED 351 10^3/uL (150-450); RED BLOOD COUNT 3.06 10^6/uL (4.00-5.40); WHITE BLOOD COUNT 12.4 10^3/uL (4.0-10.0)
[2020-07-28 07:15] LABS: BLOOD UREA NITROGEN 8 MG/DL (7-18); CALCIUM LEVEL 9.8 MG/DL (8.8-10.2); CARBON DIOXIDE LEVEL 32 MEQ/L (21-32); CHLORIDE LEVEL 97 MEQ/L (98-107); CREATININE FOR GFR 0.53 MG/DL (0.55-1.30); GLOMERULAR FILTRATION RATE > 60.0 (>45); GLUCOSE, FASTING 81 MG/DL (70-100); POTASSIUM SERUM 4.2 MEQ/L (3.5-5.1); SODIUM LEVEL 136 MEQ/L (136-145)
[2020-07-28] MEDS: OMEPRAZOLE 20 MG CAP PO SCH (08:07)
[2020-07-28] MEDS: VITAMIN D 1,000 INTERNATIONAL UNITS TABLET PO SCH (08:08)
[2020-07-28] MEDS: SIMVASTATIN 40 MG TAB PO SCH (08:08)
[2020-07-28] MEDS: ACETAMINOPHEN 500 MG TAB PO SCH (08:08)
[2020-07-28] MEDS: CEFTAROLINE FOSAMIL 600 MG in D5W MINI-BAG PLUS 50 ML IV SCH (08:09)
[2020-07-28] MEDS: SILVER SULFADIAZINE 1% CR 50 GM JAR EXT SCH (08:09)
[2020-07-28] MEDS ORDERED: OXYC-517 PO (10:07)
[2020-07-28] MEDS ORDERED: BACT800T5 PO (10:07)
[2020-07-28] MEDS ORDERED: GABA-843 PO (10:07)
--- NOTE | 2020-07-28 22:19 | DS.PDOC ---
Discharge Summary General Date of Admission Jul 25, 2020 at 14:15 Date of Discharge Jul 28, 2020 Attending Physician: ELIF GUARDADO DO Discharge Summary PROCEDURES PERFORMED DURING STAY: None ADMITTING DIAGNOSES: 1. Left arm DVT failed outpatient treatment 2. Possible cellulitis of left upper extremity 3. 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 COPD 5. GERD 6. Vitamin D deficiency DISCHARGE DIAGNOSES: 1. Left arm DVT failed outpatient treatment 2. Possible cellulitis of left upper extremity 3. 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 COPD 5. GERD 6. Vitamin D deficiency COMPLICATIONS/CHIEF COMPLAINT: Colorectal Cancer,Stage Iv,Left Upper Extremity De. HISTORY OF PRESENT ILLNESS: Mrs. 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 She has had lymph edema in the left arm chronically, but in the past few weeks had worsening pain. On 07/10/2020, she an US upper extremity found an acute occlusive thrombus in the left axillary and proximal/distal basilic veins. She was started on apixaban 5mg BID. A few days afterwards, she started developing erythema. Pain, swelling, and erythema started to worsened. On 07/20/2020, her ticket printer and tagger/oncologist, Dr. Jones, started patient on antibiotics. There continued to be no improvement of symptoms. The pain was so severe, she does not lift her left arm and uses the right arm to move left arm. Describes the pain as 8/10, but when she moves the arm, the pain worsens. It is an achy burning pain with tenderness to touch. She also reports paresthesias in the finger tips. She wears a glove over her left hand to keep it warm. She came to the ED today. She was given morphine which controlled the pain. I spoke with ticket printer and tagger/oncologist, Dr. Jones, who recommended patient to see vascular surgery. No vascular surgery coverage this week. ER called out to [facility], but no bed availability. ER called out to [facility] and spoke with vascular surgery there. No need for acute intervention and recommended Lovenox. Patient will be switched from apixaban to Lovenox today HOSPITAL COURSE: The following day, pain persisted. Reached out to patient's finish painter, Trisha Cardoso, who told me she had recently changed her pain regimen. Percocet was discontinued and gabapentin and oxycodone was added. She did better with his pain regimen and pain was better controlled. Otherwise today, the erythema appears better. She denied any fever, chest pain, dyspnea, abdominal pain, or dysuria. She already had oxycodone and gabapentin at home, so she did not need a prescription. She was discharged home today. DISCHARGE MEDICATIONS: Please see below. ALLERGIES: Please see below. PHYSICAL EXAMINATION ON DISCHARGE: VITAL SIGNS: Please see below. GENERAL: Comfortable, no apparent distress HEENT: Head normocephalic, atraumatic, EOMI, sclera clear NECK: Supple CARDIOVASCULAR EXAMINATION: Regular rate and rhythm RESPIRATORY EXAMINATION: Lungs clear to auscultation ABDOMINAL EXAMINATION: Regular rate and rhythm EXTREMITIES: Left arm swollen with erythema SKIN: Erythema of left shoulder NEUROLOGICAL EXAMINATION: CN 3-12 grossly intact PSYCHIATRIC EXAMINATION: Normal mood and affect LABORATORY DATA: Please see below. IMAGING: Left upper extremity US, vascular Left axillary and basilic vein thrombosis again noted. There is new thrombus in the brachial veins which is almost completely occlusive with trace flow noted. Left upper extremity US, non-vascular Solid bilobed mass versus 2 contiguous masses in the left axillary region, as seen on prior study, consistent with metastatic disease. PROGNOSIS: Good ACTIVITY: As tolerated. DIET: As tolerated. DISCHARGE PLAN: Home DISPOSITION: 01 Home, Self-Care. DISCHARGE INSTRUCTIONS: 1. Follow up with your PCP within 1 week 2. Follow up with your oncologist within 1 week 3. Follow up with your finish painter within 1 week DISCHARGE CONDITION: Stable. Total time spent on discharge planning, discharge summary, and medication reconciliation: 45 minutes Vital Signs/I&Os Vital Signs Date Time Temp Pulse Resp B/P (MAP) Pulse Ox O2 Delivery O2 Flow Rate FiO2 07/28/20 12:30 18 Room Air 07/28/20 06:23 99.7 99 115/57 (76) 97 I&O- Last 24 Hours up to 6 AM 07/28/20 06:00 Intake Total 1580 ml Output Total 0 ml Balance 1580 ml Laboratory Data Labs 24H Laboratory Tests 2 07/28/20 05:27: Nucleated Red Blood Cells % (auto) 0.0, Anion Gap 7L, Glomerular Filtration Rate > 60.0, Calcium Level 9.8 CBC/BMP Laboratory Tests 07/28/20 05:27 Discharge Medications Scheduled Cholecalciferol (Vitamin D3) (Vitamin D3) 1,000 Unit Tablet, 1,000 UNITS PO DAILY, (Reported) Enoxaparin Sodium (Lovenox) 60 Mg/0.6 Ml Syringe, 60 MG SC Q12H Gabapentin (Gabapentin) 300 Mg Capsule, 300 MG PO QHS [place]-3 Fatty Acids/Fish Oil (Fish Oil 1,000 mg Capsule) 1 Each Capsule, 1,600 MG PO DAILY, (Reported) Omeprazole (Omeprazole) 40 Mg Capsule.dr, 40 MG PO DAILY, (Reported) Prochlorperazine (Prochlorperazine Maleate) 5 Mg Tablet, 5 MG PO Q6-8HP Take 5 mg po q 6 hours prn nausea uncontrolled by Zofran Silver Sulfadiazine (Silvadene) 400 Gm Cream..g., 400 GRAMS EXT BID for apply to axillary skin Simvastatin (Simvastatin) 40 Mg Tablet, 40 MG PO DAILY, (Reported) Sulfamethoxazole/Trimethoprim (Bactrim Ds Tablet) 1 Each Tablet, 1 TAB PO BID Trifluridine/Tipiracil HCl (Lonsurf 15 mg-6.14 mg Tablet) 1 Each Tablet, 3 TAB PO BID TAKE FRIDAY THRU FRIDAY 3 IN THE MORNING, 3 IN EVENING FOR 2 WEEKS THEN TAKE 2 WEEKS OFF. Vitamin E (Dl,Tocopheryl Acet) (Vitamin E) 400 Unit Capsule, 400 UNIT PO DAILY, (Reported) Scheduled PRN Albuterol Sulfate (Ventolin Hfa) 18 Gm Hfa.aer.ad, 2 PUFF INH Q6H PRN for SHORTNESS OF BREATH, (Reported) Ondansetron HCl (Zofran) 4 Mg Tablet, 4 MG PO Q6-8HP PRN for nausea/vomiting Take 4 mg po q 6 hours prn nausea from chemotherapy Oxycodone HCl (Oxycodone HCl) 5 Mg Tablet, 10 MG PO Q4HP PRN for SEVERE PAIN (PS 8-10) Allergies Coded Allergies: No Known Allergies (Unverified , 02/02/19) ELIF GUARDADO DO Jul 28, 2020 22:19
== END 2020-07-28 14:00 | disposition home or self-care (01) | DRG 197 ==
LOC: M ED 08:21 → M ED INP 14:15 → ENRESERV 15:26 → M MS5PR 16:15
PROVIDERS: ADMIT Internal Medicine; ATTEND Internal Medicine
DX: I82.A12 Acute embolism and thrombosis of left axillary vein (principal); C77.3 Secondary and unspecified malignant neoplasm of axilla and upper limb lymph nodes; C18.9 Malignant neoplasm of colon, unspecified; J44.9 Chronic obstructive pulmonary disease, unspecified; L03.114 Cellulitis of left upper limb; E55.9 Vitamin D deficiency, unspecified; E78.5 Hyperlipidemia, unspecified; I82.612 Acute embolism and thrombosis of superficial veins of left upper extremity; K21.9 Gastro-esophageal reflux disease without esophagitis; L40.9 Psoriasis, unspecified; Z66 Do not resuscitate; Z79.01 Long term (current) use of anticoagulants; Z79.899 Other long term (current) drug therapy; Z87.891 Personal history of nicotine dependence; Z20.828 Contact with and (suspected) exposure to other viral communicable diseases

== ENCOUNTER → 2020-08-15 | Outpatient (CLI) | payer OTHER ==
[~2020-08-15] MED LIST changes: +BACT800T5 PO; +CEPH500C PO; +D31000TA2 PO; +GABA-843 PO; +GASTROGRAFIN SOLUTION 30ML (Q9963) As Ordered ONE; +ISOVUE-370 76% 100ML VIAL As Ordered ONE; +LOVE0.4I2 SC; +OXYC-517 PO; +wheel chair
--- NOTE | 2020-08-15 10:40 | REP ---
INDICATION: COLON CA COMPARISON: 06/07/2020 TECHNIQUE: Axial contrast enhanced images from the thoracic inlet to the upper abdomen with coronal and sagittal reformations using 100 ml Isovue 370 intravenous contrast material. This CT examination was performed using the following dose reduction techniques: Automated exposure control, adjustment of mA and/or kv according to the patient's size, and use of iterative reconstruction technique. FINDINGS: Heterogeneously enhancing necrotic metastatic focus at the left thoracic inlet measures approximately 6.9 x 4.7 cm transverse and AP diameter which may be slightly increased in size from prior examination. Heterogeneously enhancing ill-defined insinuating mass in the left axillary region which appears to be growing into the proximal portion of the soft tissues of the left upper extremity is considerably increased in size from prior examination and measures greater than 11.0 x 8.0 x 6.5 cm. The left axillary artery courses through the mass and appears somewhat narrowed/attenuated. The bilateral lung brandon demonstrate advanced emphysematous changes without consolidation or suspicious nodule/mass. No pleural effusion. No pneumothorax. Tracheobronchial tree is patent. No evidence for mediastinal or hilar adenopathy. Atherosclerotic changes to the thoracic aorta and coronary arteries are again noted and essentially unchanged. No aortic aneurysm or dissection. No cardiomegaly or pericardial effusion. The visualized osseous structures are grossly intact and normal. IMPRESSION: 1. Large heterogeneously enhancing partially necrotic mass in the left thoracic inlet and significantly enlarged mass/conglomerate metastatic adenopathy within the left axillary region noted as above. 2. The lung brandon demonstrate advanced chronic COPD/emphysematous changes without pulmonary metastatic disease and without acute mediastinal or pleuroparenchymal process. <Electronically signed by Zak Dykes > 08/15/20 [id number]
--- NOTE | 2020-08-15 11:06 | REP ---
INDICATION: COLON CA. COMPARISON: 06/07/2020 TECHNIQUE: Axial contrast-enhanced images from the lung bases to the pubic symphysis using oral and 100 cc Isovue 370 intravenous contrast material. Delayed images of the abdomen obtained along with coronal and sagittal reformations.. This CT examination was performed using the following dose reduction techniques: Automated exposure control, adjustment of mA and/or kv according to the patient's size, and the use of iterative reconstruction technique. FINDINGS: Hepatosplenomegaly is appreciated without focal hepatic or splenic lesion identified. Pancreas, gallbladder, bilateral adrenal glands and kidneys are normal. Evaluation of the enteric system demonstrates relatively normal appearance to the stomach, small bowel, and colon. Moderate fecal stasis and scattered colonic/sigmoid diverticula are appreciated. There is a somewhat irregular area of mucosal thickening involving the mid sigmoid colon within the left hemipelvis which may warrant further investigation with colonoscopy. There is no evidence for bowel perforation or obstruction in no perienteric inflammatory stranding identified. Pelvis demonstrates normal bladder and age-appropriate uterus/adnexa. No ascites. No free air. No intraperitoneal or retroperitoneal adenopathy. Abdominal aorta and vasculature demonstrate atherosclerotic disease without aneurysm or dissection. Asymmetric subcutaneous edema and infiltration along the left side of the abdomen and flank is appreciated. There is a heterogeneous rim enhancing mass along the medial aspect of the left thigh measuring roughly 3.3 x 3.5 x 2.4 cm (series 301; images 135-145) which is relatively stable in size but suggests involving central necrosis and is similar in appearance to the lesions identified in the left thoracic inlet and left shoulder. IMPRESSION: 1. Hepatosplenomegaly without focal hepatic or splenic lesions. 2. Enhancing lesion along the medial aspect of the left thigh again noted and now appears somewhat necrotic and similar in appearance/morphology to the lesions in the left chest/shoulder. No further metastatic foci are identified. 3. Cannot exclude mucosal irregularity in the mid sigmoid colon for which colonoscopy may be warranted. <Electronically signed by Zak Dykes > 08/15/20 [id number]
== END ==
LOC: M RAD 08:29
PROVIDERS: ATTEND Internal Medicine Medical Oncology
DX: C18.9 Malignant neoplasm of colon, unspecified (principal); R91.8 Other nonspecific abnormal finding of lung field; J44.9 Chronic obstructive pulmonary disease, unspecified; R16.2 Hepatomegaly with splenomegaly, not elsewhere classified
CPT/HCPCS: 71260; 74177; Q9963; Q9967

== ENCOUNTER → 2020-11-15 | Outpatient (CLI) | payer OTHER ==
[~2020-11-15] MED LIST changes: +GABA-282 PO; -GABA-843 PO; +K-TA10TA2 PO; +KLOR20TA42 PO; +METH5TA PO; +METH5TAB3 PO; +MORP10SO PO; -VITA-157 PO; +VITAE40CA PO
--- NOTE | 2020-11-16 04:14 | REP ---
INDICATION: MET COLON CA COMPARISON: 08/15/2020 TECHNIQUE: Axial contrast enhanced images from the thoracic inlet to the upper abdomen using 100 ml Isovue 370 intravenous contrast material followed by CT of the abdomen and pelvis. Coronal and sagittal reformations obtained. This CT examination was performed using the following dose reduction techniques: Automated exposure control, adjustment of mA and/or kv according to the patient's size, and use of iterative reconstruction technique. FINDINGS: The rim enhancing necrotic mass/conglomerate adenopathy involving the left shoulder including a suprascapular lesion as well as a lesion for extending from the axilla into the left upper extremity appears increased from prior examination, but incompletely evaluated due to positioning. The surrounding osseous structures themselves appear relatively intact. The bilateral lung brandon demonstrate advanced emphysematous changes with scattered scarring and bronchiectasis similar to prior examination. No focal consolidation, nodule or mass lesion. No pleural effusion. No pneumothorax. No significant mediastinal or hilar adenopathy is appreciated. Further evaluation of the mediastinum demonstrates atherosclerotic changes to the thoracic aorta and coronary arteries essentially unchanged. No cardiomegaly or pericardial effusion. IMPRESSION: 1. Rim enhancing necrotic mass/conglomerate adenopathy involving the left shoulder/thoracic inlet and left axilla with extension into the left upper extremity appears increased from prior examination. 2. The lung brandon demonstrate advanced emphysematous changes similar to prior examination. No acute mediastinal or pleuroparenchymal process appreciated. <Electronically signed by Zak Dykes > 11/16/20 [id number]
--- NOTE | 2020-11-16 09:19 | REP ---
INDICATION: MET COLON CA. COMPARISON: None TECHNIQUE: Axial contrast-enhanced images from the lung bases to the pubic symphysis using 100 cc Isovue 370 intravenous contrast material. . This CT examination was performed using the following dose reduction techniques: Automated exposure control, adjustment of mA and/or kv according to the patient's size, and the use of iterative reconstruction technique. FINDINGS: Liver, spleen, pancreas, gallbladder, bilateral adrenal glands and kidneys are normal. The enteric system is without obstruction or acute inflammatory process although moderate fecal stasis and diffuse diverticulosis is appreciated. Irregular mucosal thickening involving the sigmoid colon cannot be excluded. Pelvis demonstrates normal bladder and age-appropriate uterus/adnexa. No ascites. No free air. No obvious adenopathy. Abdominal aorta demonstrates atherosclerotic changes without aneurysm or dissection. Musculoskeletal structures are intact and without focal osseous abnormality. There is subcutaneous edematous infiltration involving the visualized left hemithorax as well as along the left flank to the left pelvis which may be slightly increased from prior examination and possibly related to the known large axillary and left supraclavicular necrotic metastatic lymph nodes. IMPRESSION: 1. No acute abdominopelvic pathology appreciated. No obvious metastatic disease. 2. Diverticulosis. Mucosal thickening to the sigmoid colon cannot be excluded. 3. Asymmetric subcutaneous edema and stranding in the subcutaneous tissues along the left side of the lower chest and abdomen/pelvis slightly increased from prior examination. <Electronically signed by Zak Dykes > 11/16/20 0915
== END ==
LOC: M RAD 11:58
PROVIDERS: ATTEND Internal Medicine Medical Oncology
DX: Z12.11 Encounter for screening for malignant neoplasm of colon (principal); K57.30 Diverticulosis of large intestine without perforation or abscess without bleeding
CPT/HCPCS: 71260; 74177; Q9963; Q9967

== ENCOUNTER → 2020-11-20 | Outpatient (REF) | payer OTHER ==
[~2020-11-20] MED LIST changes: -GASTROGRAFIN SOLUTION 30ML (Q9963) As Ordered ONE; -ISOVUE-370 76% 100ML VIAL As Ordered ONE
== END ==
LOC: M LAB REF 08:34
PROVIDERS: ATTEND Internal Medicine Medical Oncology
DX: C21.0 Malignant neoplasm of anus, unspecified (principal)

== ENCOUNTER → 2021-01-10 | Outpatient (CLI) | payer OTHER ==
[~2021-01-10] MED LIST changes: +COVI100V IM; +GASTROGRAFIN SOLUTION 30ML (Q9963) As Ordered ONE; +ISOVUE-370 76% 100ML VIAL As Ordered ONE; +LIDO1CRE42 TOP; -LIDO2.5C15 TOP
--- NOTE | 2021-01-10 17:31 | REP ---
INDICATION: METASTATIC COLON CA COMPARISON: 11/15/2020 the latest prior TECHNIQUE: Standard helical technique after the intravenous administration of 100 cc Isovue 370 FINDINGS: The huge mass seen previously extending from the left axillary region into the and along the left chest wall with mixed enhancement characteristics has increased. In addition, the bone density of the left scapula appears less than the contralateral side. There is no evidence of definite concomitant left rib destruction. There is no evidence of a of intrathoracic invasion at this time there is no mediastinal or hilar adenopathy. There are no pleural or pericardial effusions. Evaluation of the lung brandon again shows chronic emphysematous changes status quo. No new abnormal nodules, masses, or opacities have developed since the last exam. IMPRESSION: Large mixed enhancing mixed density left-sided mass as described above and although partially imaged may have increased compared to the prior exam. In addition, the bone density of the left scapula does appear rarefied compared to the contralateral side. This should be correlated clinically. Consider total body bone scan if clinically relevant. <Electronically signed by Aiden Lu > 01/10/21 [id number]
--- NOTE | 2021-01-10 17:38 | REP ---
INDICATION: METASTATIC COLON CA. COMPARISON: 11/15/2020 latest prior TECHNIQUE: Standard helical technique after the intravenous administration of 100 cc Isovue 370 and oral bowel preparatory contrast administration. FINDINGS: Once again, seen along the left lateral abdominal wall externally there is soft tissue thickening and enhancement. This area measures approximately 11 0.3 cm in length by 5.7 cm in width by 10 cm maximal AP dimension. There is no evidence of concomitant underlying rib destruction. This appears to have increased somewhat compared to the prior exam. The liver, gallbladder, spleen, pancreas, adrenal glands, and kidneys are unchanged. The bowel loops and the mesenteries are essentially unchanged. There is no free fluid or free air. There is no change in appearance of the abdominal aorta or para aortic regions. No intraabdominal or intra pelvic mass or adenopathy has developed. There is no change in appearance of the imaged osseous structures. IMPRESSION: No acute intraabdominal or intrapelvic abnormality has developed since the last exam, however, the left-sided soft tissue abnormality appears to have increased as described above. <Electronically signed by Aiden Lu > 01/10/21 [id number]
== END ==
LOC: M RAD 15:17
PROVIDERS: ATTEND Internal Medicine Medical Oncology
DX: C18.9 Malignant neoplasm of colon, unspecified (principal)
CPT/HCPCS: 71260; 74177; Q9963; Q9967